=== PATIENT | female | born 1965 | race Caucasian/White ===

== ENCOUNTER 2017-01-06 09:10 | Day surgery (SDC) | payer MEDICARE, BC, MEDICAID ==
[~2017-01-06] VITALS: Ht 157.5 cm; Wt 88.9 kg
[2017-01-06] VITALS (30 sets, daily range): BP systolic 85–149; BP diastolic 55–88; PULSE 60–85; RESP 14–20; TEMP 97–98.8; O2SAT 91–100; Ht 157.5 cm; Wt 88.9 kg
[~2017-01-06 09:10] MED LIST: ALBU8.5H3 INH; BISA-72 PO; BUPIVACAINE 0.25%/EPI 1:200,000 30ml SDV ONE; BUSP15TA3 PO; CEFAZOLIN 1 GRAM INJECTION IV ONE; CETI-269 PO; DIPH25TA23 PO; ESOM40CA PO; FLUT1DIS3 ORAL INH; FURO-35 PO; GENTAMICIN 80 MG/2 ML INJECTION ONE; HYPR10GE4; L.AC1CAP6 PO; LAMO300T PO; LINA290C PO; LR 1,000 ML IV SCH; MAGN400C PO; METF10002 PO; NAPR220C11 PO; POLY17PO18 PO; POTA20TA87 PO; PROP15DR BOTH EYES; SERT100T12 PO; SUCR1TAB PO; TIZA2TAB4 PO; TRAM-277 PO
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
--- OUTSIDE RECORDS SUMMARY | 2017-01-06 09:18 | XMS REPORT | Continuity of Care Document ---
Author Author Via [facility]. Organization [facility]. Address Unknown Phone Unavailable Allergies Active Description Code Type Severity Reaction Onset Reported/Identified Relationship to Patient Clinical Status Yes LIDOCAINE HCL 4629 DRUG INGREDI N/A N/A Yes METRONIDAZOLE 4884 DRUG INGREDI N/A N&V 08/25/2013 Yes METRONIDAZOLE 99038 DRUG INGREDI N/A NTV 08/25/2013 Yes MOLDS T SMUTS 10708 DRUG INGREDI High Anaphylaxis 08/25/2013 Yes MDX - Bupivacaine X492 Drug Allergy Unknown N/A 05/17/2014 Yes MDX - Lidocaine X302 Drug Allergy Unknown N/A 05/17/2014 Yes MDX - Metronidazole X331 Drug Allergy Unknown Vomiting 05/17/2014 Yes Molds MOLD Miscellaneous Allergy Unknown N/A 05/17/2014 Yes Flagyl 7327 Drug moderate Nausea / Vomiting 08/08/2016 Yes Unable to Assess UA UA N/A N/A 08/08/2016 Yes Molds MOLD Miscellaneous Allergy Severe THROAT CLOSES A 10/01/2016 Yes MDX - Bupivacaine X492 Drug Allergy Moderate FACE REDDENS 10/01/2016 Yes MDX - Lidocaine X302 Drug Allergy Moderate FACE REDDENS 10/01/2016 Yes MDX - Metronidazole X331 Drug Allergy Moderate Vomiting 10/01/2016 Medications Problems Date Dx Coded Attending Type Code Diagnosis Diagnosed By 02/09/2013 CADEN MACKENZIE 7295 PAIN IN LIMB 05/17/2014 Ronan Wallace 780.79 05/17/2014 Ronan Wallace 780.97 05/17/2014 Ronan Wallace 784.0 05/17/2014 Ronan Wallace 784.59 05/17/2014 Ronan Wallace 787.02 05/17/2014 Ronan Wallace V15.52 07/11/2015 Alo Villa Z12.31 07/11/2015 Alo Villa Z12.31 07/11/2015 Newcomer, Caden Z12.31 07/20/2015 Newcomer, Caden Z12.31 07/22/2015 Newcomer, Caden Z12.31 08/07/2015 Newcomer, Caden Z12.31 08/10/2015 Newcomer, Caden Z12.31 08/10/2015 Newcomer, Caden Z12.31 08/11/2015 Newcomer, Caden Z12.31 08/14/2015 Newcomer, Caden Z12.31 08/29/2015 KOOPMAN, LLOYD W E66.9 08/29/2015 KOOPMAN, LLOYD W E74.39 08/29/2015 KOOPMAN, LLOYD A E88.81 08/29/2015 KOOPMAN, LLOYD W F41.1 08/29/2015 KOOPMAN, LLOYD W G40.909 08/29/2015 KOOPMAN, LLOYD W G47.30 08/29/2015 KOOPMAN, LLOYD W I10 08/29/2015 KOOPMAN, LLOYD W J45.909 08/29/2015 KOOPMAN, LLOYD W K21.9 08/29/2015 KOOPMAN, LLOYD W K31.84 08/29/2015 KOOPMAN, LLOYD W Z68.39 08/31/2015 KOOPMAN, LLOYD W E66.9 08/31/2015 KOOPMAN, LLOYD W E74.39 08/31/2015 KOOPMAN, LLOYD A E88.81 08/31/2015 KOOPMAN, LLOYD W F41.1 08/31/2015 KOOPMAN, LLOYD W G40.909 08/31/2015 KOOPMAN, LLOYD W G47.30 08/31/2015 KOOPMAN, LLOYD W I10 08/31/2015 KOOPMAN, LLOYD W J45.909 08/31/2015 KOOPMAN, LLOYD W K21.9 08/31/2015 KOOPMAN, LLOYD W K31.84 08/31/2015 KOOPMAN, LLOYD W Z68.39 09/06/2015 Elio Rodarte E66.9 09/06/2015 Elio Rodarte W E74.39 09/06/2015 Elio Rodarte A E88.81 09/06/2015 Elio Rodarte W F41.1 09/06/2015 Elio Rodarte W G40.909 09/06/2015 Elio Rodarte W G47.30 09/06/2015 Elio Rodarte W I10 09/06/2015 Elio Rodarte W J45.909 09/06/2015 Elio Rodarte W K21.9 09/06/2015 Elio Rodarte W K31.84 09/06/2015 Elio Rodarte W Z68.39 09/07/2015 Elio Rodarte W E66.9 09/07/2015 Elio Rodarte W E74.39 09/07/2015 Elio Rodarte A E88.81 09/07/2015 Elio Rodarte F41.1 09/07/2015 Elio Rodarte G40.909 09/07/2015 Elio Rodarte G47.30 09/07/2015 Elio Rodarte W I10 09/07/2015 Elio Rodarte J45.909 09/07/2015 Elio Rodarte K21.9 09/07/2015 Elio Rodarte K31.84 09/07/2015 Elio Rodarte W M19.90 09/07/2015 Elio Rodarte Z68.39 09/08/2015 Elio Rodarte E66.9 09/08/2015 Elio Rodarte E74.39 09/08/2015 Elio Rodarte A E88.81 09/08/2015 Elio Rodarte W F41.1 09/08/2015 Elio Rodarte W G40.909 09/08/2015 RodarteElio peña W G47.30 09/08/2015 RodarteElio peña W I10 09/08/2015 RodarteElio peña W J45.909 09/08/2015 Elio Rodarte W K21.9 09/08/2015 Elio Rodarte W K31.84 09/08/2015 Elio Rodarte W M19.90 09/08/2015 RodarteElio peña W Z68.39 09/09/2015 Elio Rodarte W E66.9 09/09/2015 Elio Rodarte W E74.39 09/09/2015 Elio Rodarte E88.81 09/09/2015 Elio Rodarte F41.1 09/09/2015 Elio Rodarte G40.909 09/09/2015 Elio Rodarte G47.30 09/09/2015 Elio Rodarte W I10 09/09/2015 Elio Rodarte J45.909 09/09/2015 Elio Rodarte K21.9 09/09/2015 Elio Rodarte K31.84 09/09/2015 Elio Rodarte M19.90 09/09/2015 Elio Rodarte Z68.39 09/10/2015 Elio Rodarte E66.9 09/10/2015 Elio Rodarte E74.39 09/10/2015 Elio Rodarte E88.81 09/10/2015 Elio Rodarte F41.1 09/10/2015 Elio Rodarte G40.909 09/10/2015 Elio Rodarte G47.30 09/10/2015 Elio Rodarte W I10 09/10/2015 Elio Rodarte J45.909 09/10/2015 Elio Rodarte K21.9 09/10/2015 Elio Rodarte K31.84 09/10/2015 Elio Rodarte M19.90 09/10/2015 Elio Rodarte Z68.39 09/18/2015 LLOYD MALLOY E66.9 09/18/2015 LLOYD MALLOY E74.39 09/18/2015 LLOYD MALLOY A E88.81 09/18/2015 LLOYD MALLOY F41.1 09/18/2015 LLOYD MALLOY G40.909 09/18/2015 LLOYD MALLOY G47.30 09/18/2015 LLOYD MALLOY I10 09/18/2015 LLOYD MALLOY J45.909 09/18/2015 LLOYD MALLOY K21.9 09/18/2015 LLOYD MALLOY K31.84 09/18/2015 LLOYD MALLOY Z68.39 09/26/2015 Elio Rodarte E66.9 09/26/2015 Rodarte, Elio Cruz E74.39 09/26/2015 Rodarte, Elio Reich E88.81 09/26/2015 Rodarte, Elio Cruz F41.1 09/26/2015 Rodarte, Elio Cruz G40.909 09/26/2015 Rodarte, Elio Cruz G47.30 09/26/2015 Rodarte, Elio Cruz I10 09/26/2015 Rodarte, Eloi Cruz J45.909 09/26/2015 Rodarte, Elio Cruz K21.9 09/26/2015 Rodarte, Elio Cruz K31.84 09/26/2015 Rodarte, Elio Cruz M19.90 09/26/2015 Rodarte, Elio Cruz Z68.39 09/26/2015 Rodarte, Elio Cruz E66.9 09/26/2015 Rodarte, Elio Cruz E74.39 09/26/2015 Rodarte, Elio Reich E88.81 09/26/2015 Rodarte, Elio Cruz F41.1 09/26/2015 Rodarte, Elio Cruz G40.909 09/26/2015 Rodarte, Elio Cruz G47.30 09/26/2015 Rodarte, Elio Cruz I10 09/26/2015 Rodarte, Elio Cruz J45.909 09/26/2015 Rodarte, Elio Cruz K21.9 09/26/2015 Rodarte, Elio Cruz K31.84 09/26/2015 Rodarte, Elio Cruz M19.90 09/26/2015 Rodarte, Elio Cruz Z68.39 09/27/2015 KOOPMANLLOYD W E66.9 09/27/2015 KOOPMAN, LLOYD W E74.39 09/27/2015 KOOPMANLLOYD A E88.81 09/27/2015 KOOPMAN, LLOYD W F41.1 09/27/2015 KOOPMAN, LLOYD W G40.909 09/27/2015 KOOPMAN, LLOYD W G47.30 09/27/2015 KOOPMAN, LLOYD W I10 09/27/2015 KOOPMAN, LLOYD W J45.909 09/27/2015 KOOPMAN, LLOYD W K21.9 09/27/2015 KOOPMANLLOYD K31.84 09/27/2015 KOOPLLOYD POLLACK Z68.39 09/27/2015 Rodarte, Elio Cruz E66.9 09/27/2015 Rodarte, Elio Cruz E74.39 09/27/2015 Rodarte, Elio Reich E88.81 09/27/2015 Rodarte, Elio Cruz F41.1 09/27/2015 Rodarte, Elio Cruz G40.909 09/27/2015 Rodarte, Elio Cruz G47.30 09/27/2015 Rodarte, Elio Cruz I10 09/27/2015 Rodarte, Elio Cruz J45.909 09/27/2015 Rodarte, Elio Cruz K21.9 09/27/2015 Rodarte, Elio Cruz K31.84 09/27/2015 Rodarte, Elio Cruz M19.90 09/27/2015 Rodarte, Elio Cruz Z68.39 09/27/2015 Rodarte, Elio Cruz E66.9 09/27/2015 Rodarte, Elio Cruz E74.39 09/27/2015 Rodarte, Elio Reich E88.81 09/27/2015 Rodarte, Elio Cruz F41.1 09/27/2015 Rodarte, Elio Cruz G40.909 09/27/2015 Rodarte, Elio Cruz G47.30 09/27/2015 Rodarte, Elio Cruz I10 09/27/2015 Rodarte, Elio Cruz J45.909 09/27/2015 Rodarte, Elio Cruz K21.9 09/27/2015 Rodarte, Elio Cruz K31.84 09/27/2015 Rodarte, Elio Cruz M19.90 09/27/2015 Rodarte, Elio Cruz Z68.39 09/29/2015 KOOPMANLLOYD E66.9 09/29/2015 KOOPMAN, LLOYD W E74.39 09/29/2015 KOOPLLOYD POLLACK A E88.81 09/29/2015 KOOPMANLLOYD W F41.1 09/29/2015 KOOPMAN, LLOYD W G40.909 09/29/2015 KOOPMAN, LLOYD W G47.30 09/29/2015 KOOPLLOYD POLLACK W I10 09/29/2015 KOOPMANLLOYD J45.909 09/29/2015 KOOPMAN, LLOYD W K21.9 09/29/2015 KOOPMAN, LLOYD W K31.84 09/29/2015 KOOPMAN, LLOYD W Z68.39 10/02/2015 KOOPMAN, LLOYD W E66.9 10/02/2015 KOOPMAN, LLOYD W E74.39 10/02/2015 KOOPJAKI, LLOYD A E88.81 10/02/2015 KOOPMAN, LLOYD W F41.1 10/02/2015 KOOPMAN, LLOYD W G40.909 10/02/2015 KOOPMAN, LLOYD W G47.30 10/02/2015 KOOPMAN, LLOYD W I10 10/02/2015 KOOPMAN, LLOYD W J45.909 10/02/2015 KOOPMAN, LLOYD W K21.9 10/02/2015 KOOPMAN, LLOYD W K31.84 10/02/2015 KOOPJAKI, LLOYD W Z68.39 10/05/2015 Elio Rodarte E66.9 10/05/2015 Elio Rodarte E74.39 10/05/2015 Elio Rodarte E88.81 10/05/2015 Rodarte, Elio Cruz F41.1 10/05/2015 Rodarte, Elio Cruz G40.909 10/05/2015 Elio Rodarte G47.30 10/05/2015 Elio Rodarte I10 10/05/2015 Elio Rodarte J45.909 10/05/2015 Elio Rodarte K21.9 10/05/2015 Rodarte, Elio Cruz K31.84 10/05/2015 Rodarte, Elio Cruz M19.90 10/05/2015 Rodarte, Elio Cruz Z68.39 10/11/2015 Rodarte, Elio Cruz E66.9 10/11/2015 Rodarte, Elio Cruz E74.39 10/11/2015 Elio Rodarte A E88.81 10/11/2015 Rodarte, Elio Cruz F41.1 10/11/2015 Elio Rodarte G40.909 10/11/2015 Rodarte, Elio Cruz G47.30 10/11/2015 Rodarte, Elio Cruz I10 10/11/2015 Elio Rodarte J45.909 10/11/2015 Rodarte, Elio Cruz K21.9 10/11/2015 Rodarte, Elio Cruz K31.84 10/11/2015 Rodarte, Elio Cruz M19.90 10/11/2015 Rodarte, Elio Cruz Z68.38 10/13/2015 Rodarte, Elio Cruz E66.9 10/13/2015 Rodarte, Elio Cruz E74.39 10/13/2015 Rodarte, Elio Reich E88.81 10/13/2015 Rodarte, Elio Cruz F41.1 10/13/2015 Rodarte, Elio Cruz G40.909 10/13/2015 Rodarte, Elio Cruz G47.30 10/13/2015 Rodarte, Elio Cruz I10 10/13/2015 Rodarte, Elio Cruz J45.909 10/13/2015 Rodarte, Elio Cruz K21.9 10/13/2015 Rodarte, Elio Cruz K31.84 10/13/2015 Rodarte, Elio Cruz M19.90 10/13/2015 Rodarte, Elio Cruz Z68.38 10/30/2015 Rodarte, Elio Reich E11.9 10/30/2015 Rodarte, Elio Cruz G47.33 10/30/2015 Rodarte, Elio Cruz I10 10/30/2015 Rodarte, Elio Cruz J45.998 10/30/2015 Rodarte, Elio Cruz Z68.37 11/01/2015 Rodarte, Elio Reich E11.9 11/01/2015 Rodarte, Elio Cruz G47.33 11/01/2015 Rodarte, Elio Cruz I10 11/01/2015 Rodarte, Elio Cruz J45.998 11/01/2015 Rodarte, Elio Cruz Z68.37 11/01/2015 Rodarte, Elio Cruz E66.9 11/01/2015 Rodarte, Elio Cruz E74.39 11/01/2015 Rodarte, Elio Reich E88.81 11/01/2015 Rodarte, Elio Cruz F41.1 11/01/2015 Rodarte, Elio Cruz G40.909 11/01/2015 Rodarte, Elio Cruz G47.30 11/01/2015 Rodarte, Elio Cruz I10 11/01/2015 Rodarte, Elio Cruz J45.909 11/01/2015 Rodarte, Elio Cruz K21.9 11/01/2015 Rodarte, Elio Cruz K31.84 11/01/2015 Rodarte, Elio Cruz M19.90 11/01/2015 Rodarte, Elio Cruz Z68.38 11/01/2015 Rodarte, Elio Cruz E66.9 11/01/2015 Rodarte, Elio Cruz E74.39 11/01/2015 Rodarte, Elio Reich E88.81 11/01/2015 Rodarte, Elio Cruz F41.1 11/01/2015 Rodarte, Elio Cruz G40.909 11/01/2015 Rodarte, Elio Cruz G47.30 11/01/2015 Rodarte, Elio Cruz I10 11/01/2015 Rodarte, Elio Cruz J45.909 11/01/2015 Rodarte, Elio Cruz K21.9 11/01/2015 Rodarte, Elio Cruz K31.84 11/01/2015 Rodarte, Elio Cruz M19.90 11/01/2015 Rodarte, Elio Cruz Z68.38 11/06/2015 Rodarte, Elio Cruz E66.9 11/06/2015 Rodarte, Elio Cruz E74.39 11/06/2015 Rodarte, Elio Reich E88.81 11/06/2015 Rodarte, Elio Cruz F41.1 11/06/2015 Rodarte, Elio Cruz G40.909 11/06/2015 Rodarte, Elio Cruz G47.30 11/06/2015 Rodarte, Elio Cruz I10 11/06/2015 Rodarte, Elio Cruz J45.909 11/06/2015 Rodarte, Elio Cruz K21.9 11/06/2015 Rodarte, Elio Cruz K31.84 11/06/2015 Rodarte, Elio Cruz M19.90 11/06/2015 Rodarte, Elio Cruz Z68.38 11/08/2015 Rodarte, Elio Cruz E66.9 11/08/2015 Rodarte, Elio Cruz E74.39 11/08/2015 Rodarte, Elio Reich E88.81 11/08/2015 Rodarte, Elio Cruz F41.1 11/08/2015 Rodarte, Elio Cruz G40.909 11/08/2015 Rodarte, Elio Cruz G47.30 11/08/2015 Rodarte, Elio France W I10 11/08/2015 Rodarte, Elio Cruz J45.909 11/08/2015 Rodarte, Elio Cruz K21.9 11/08/2015 Rodarte, Elio Cruz K31.84 11/08/2015 Rodarte, Elio Cruz M19.90 11/08/2015 Rodarte, Elio Cruz Z68.38 11/15/2015 Rodarte, Elio Cruz E66.9 11/15/2015 Rodarte, Elio Cruz E74.39 11/15/2015 Rodarte, Elio Reich E88.81 11/15/2015 Rodarte, Elio Cruz F41.1 11/15/2015 Rodarte, Elio Cruz G40.909 11/15/2015 Rodarte, Elio Cruz G47.30 11/15/2015 Rodarte, Elio Cruz I10 11/15/2015 Rodarte, Elio Cruz J45.909 11/15/2015 Rodarte, Elio Cruz K21.9 11/15/2015 Rodarte, Elio Cruz K31.84 11/15/2015 Rodarte, Elio Cruz M19.90 11/15/2015 Rodarte, Elio Cruz Z68.38 11/15/2015 Rodarte, Elio France A E11.9 11/15/2015 Rodarte, Elio Cruz G47.33 11/15/2015 Rodarte, Elio Cruz I10 11/15/2015 Rodarte, Elio Cruz J45.998 11/15/2015 Rodarte, Elio Cruz Z68.37 11/15/2015 RodarteElio A E11.9 11/15/2015 Rodarte, Elio Cruz G47.33 11/15/2015 Rodarte, Elio Cruz I10 11/15/2015 Rodarte, Elio Cruz J45.998 11/15/2015 Rodarte, Elio Cruz Z68.37 11/15/2015 Alo Villa Z12.31 11/15/2015 LLOYD MALLOY E66.9 11/15/2015 LLOYD MALLOY E74.39 11/15/2015 LLOYD MALLOY E88.81 11/15/2015 BGLLOYD POLLACK W F41.1 11/15/2015 LLOYD MALLOY W G40.909 11/15/2015 ALTAGRACIASALVATORELLOYD POLLACK W G47.30 11/15/2015 LLOYD MALLOY W I10 11/15/2015 LLOYD MALLOY W J45.909 11/15/2015 LLOYD MALLOY W K21.9 11/15/2015 LLOYD MALLOY W K31.84 11/15/2015 ALTAGRACIASALVATOREJAKI LLOYD W Z68.39 11/15/2015 Rodarte, Elio Cruz E66.9 11/15/2015 Rodarte, Elio Cruz E74.39 11/15/2015 Elio Rodarte E88.81 11/15/2015 Cayden, Elio Cruz F41.1 11/15/2015 Rodarte, Elio Cruz G40.909 11/15/2015 Rodarte, Elio Cruz G47.30 11/15/2015 Rodarte, lEio Cruz I10 11/15/2015 Rodarte, Elio Cruz J45.909 11/15/2015 Rodarte, Elio Cruz K21.9 11/15/2015 Rodarte, Elio Cruz K31.84 11/15/2015 Rodarte, Elio Cruz Z68.39 11/15/2015 RodarteElio peña E66.9 11/15/2015 Rodarte, Elio Cruz E74.39 11/15/2015 Elio Rodarte E88.81 11/15/2015 Rodarte, Elio Cruz F41.1 11/15/2015 Rodarte, Elio Cruz G40.909 11/15/2015 Rodarte, Elio Cruz G47.30 11/15/2015 RodarteElio peña I10 11/15/2015 Rodarte, Elio Cruz J45.909 11/15/2015 Rodarte, Elio Cruz K21.9 11/15/2015 RodarteElio K31.84 11/15/2015 Rodarte, Elio Cruz M19.90 11/15/2015 Rodarte, Elio Cruz Z68.39 11/15/2015 Rodarte, Elio Cruz E66.9 11/15/2015 Rodarte, Elio Cruz E74.39 11/15/2015 Elio Rodarte E88.81 11/15/2015 Rodarte, Elio Cruz F41.1 11/15/2015 Rodarte, Elio Cruz G40.909 11/15/2015 Rodarte, Elio Cruz G47.30 11/15/2015 Rodarte, Elio Cruz I10 11/15/2015 Rodarte, Elio Cruz J45.909 11/15/2015 Rodarte, Elio Cruz K21.9 11/15/2015 Rodarte, Elio Cruz K31.84 11/15/2015 Rodarte, Elio Cruz M19.90 11/15/2015 Rodarte, Elio Cruz Z68.39 11/15/2015 Rodarte, Elio Cruz E66.9 11/15/2015 Rodarte, Elio Cruz E74.39 11/15/2015 Rodarte, Elio Reich E88.81 11/15/2015 Rodarte, Elio Cruz F41.1 11/15/2015 Rodarte, Elio Cruz G40.909 11/15/2015 Rodarte, Elio Cruz G47.30 11/15/2015 Rodarte, Elio Cruz I10 11/15/2015 Rodarte, Elio Curz J45.909 11/15/2015 Rodarte, Elio Cruz K21.9 11/15/2015 Rodarte, Elio Cruz K31.84 11/15/2015 Rodarte, Elio Cruz M19.90 11/15/2015 Rodarte, Elio Cruz Z68.38 11/15/2015 Rodarte, Elio Reich E11.9 11/15/2015 Rodarte, Elio Cruz G47.33 11/15/2015 RodarteElio I10 11/15/2015 Rodarte, Elio Cruz J45.998 11/15/2015 Rodarte, Elio Cruz Z68.37 11/22/2015 Alo Villa Z12.31 11/22/2015 LLOYD MALLOY E66.9 11/22/2015 LLOYD MALLOY E74.39 11/22/2015 LLOYD MALLOY E88.81 11/22/2015 LLOYD MALLOY F41.1 11/22/2015 LLOYD MALLOY G40.909 11/22/2015 LLOYD MALLOY G47.30 11/22/2015 ALTAGRACIASALVATORELLOYD POLLACK W I10 11/22/2015 ALTAGRACIAOPLLOYD POLLACK W J45.909 11/22/2015 ALTAGRACIASALVATORELLOYD POLLACK W K21.9 11/22/2015 KOSALVATORELLOYD POLLACK W K31.84 11/22/2015 ALTAGRACIASALVATOREJAKILLOYD W Z68.39 11/22/2015 Rodarte, Elio Cruz E66.9 11/22/2015 Rodarte, Elio Cruz E74.39 11/22/2015 Rodarte, Elio Reich E88.81 11/22/2015 Rodarte, Elio Cruz F41.1 11/22/2015 Rodarte, Elio Cruz G40.909 11/22/2015 Rodarte, Elio Cruz G47.30 11/22/2015 Rodarte, Elio Cruz I10 11/22/2015 Rodarte, Elio Cruz J45.909 11/22/2015 Rodarte, Elio Cruz K21.9 11/22/2015 Rodarte, Elio Cruz K31.84 11/22/2015 Rodarte, Elio Cruz Z68.39 11/22/2015 Rodarte, Elio Cruz E66.9 11/22/2015 Rodarte, Elio Cruz E74.39 11/22/2015 Rodarte, Elio Reich E88.81 11/22/2015 Rodarte, Elio Cruz F41.1 11/22/2015 Rodarte, Elio Cruz G40.909 11/22/2015 Rodarte, Elio Cruz G47.30 11/22/2015 Rodarte, Elio Cruz I10 11/22/2015 Rodarte, Elio Curz J45.909 11/22/2015 Rodarte, Elio Cruz K21.9 11/22/2015 Rodarte, Elio Cruz K31.84 11/22/2015 Rodarte, Elio Cruz M19.90 11/22/2015 Rodarte, Elio Cruz Z68.39 11/22/2015 Rodarte, Elio Cruz E66.9 11/22/2015 Rodarte, Elio Cruz E74.39 11/22/2015 Rodarte, Elio Reich E88.81 11/22/2015 Rodarte, Elio Cruz F41.1 11/22/2015 Rodarte, Elio Cruz G40.909 11/22/2015 Elio Rodarte G47.30 11/22/2015 Elio Rodarte I10 11/22/2015 Elio Rodarte J45.909 11/22/2015 Elio Rodarte K21.9 11/22/2015 Elio Rodarte K31.84 11/22/2015 Elio Rodarte M19.90 11/22/2015 Elio Rodarte Z68.39 11/22/2015 Elio Rodarte E66.9 11/22/2015 Elio Rodarte E74.39 11/22/2015 Elio Rodarte E88.81 11/22/2015 Elio Rodarte F41.1 11/22/2015 Elio Rodarte G40.909 11/22/2015 Elio Rodarte G47.30 11/22/2015 Elio Rodarte I10 11/22/2015 Elio Rodarte J45.909 11/22/2015 Elio Rodarte K21.9 11/22/2015 Elio Rodarte K31.84 11/22/2015 Elio Rodarte M19.90 11/22/2015 Elio Rodarte Z68.38 11/22/2015 Elio Rodarte E11.9 11/22/2015 Elio Rodarte G47.33 11/22/2015 Elio Rodarte I10 11/22/2015 Elio Rodarte J45.998 11/22/2015 Elio Rodarte Z68.37 11/22/2015 Amara, Aries W G43.909 MIGRAINE, UNSP, NOT INTRACTABLE, WITHOUT 11/22/2015 Amara, Aries W I10 ESSENTIAL (PRIMARY) HYPERTENSION 11/22/2015 Amara, Aries A R51 HEADACHE 11/22/2015 Amara, Aries W Z87.891 PERSONAL HISTORY OF NICOTINE DEPENDENCE 11/22/2015 Elio Rodarte E11.9 11/22/2015 Elio Rodarte G47.33 11/22/2015 Elio Rodarte I10 11/22/2015 Elio Rodarte J45.998 11/22/2015 Elio Rodarte Z68.37 11/22/2015 Elio Rodarte E11.9 11/22/2015 Rodarte, Elio Cruz G47.33 11/22/2015 Rodarte, Elio Cruz I10 11/22/2015 Rodarte, Elio Cruz J45.998 11/22/2015 Rodarte, Elio Cruz Z68.37 11/27/2015 Rodarte, Elio Cruz E66.9 11/27/2015 Rodarte, Elio Cruz E74.39 11/27/2015 Rodarte, Elio Reich E88.81 11/27/2015 Rodarte, Elio Cruz F41.1 11/27/2015 Rodarte, Elio Cruz G40.909 11/27/2015 Rodarte, Elio Cruz G47.30 11/27/2015 Rodarte, Elio Cruz I10 11/27/2015 Rodarte, Elio Cruz J45.909 11/27/2015 Rodarte, Elio Cruz K21.9 11/27/2015 RodarteElio peña K31.84 11/27/2015 Rodarte, Elio Cruz M19.90 11/27/2015 RodarteElio peña Z68.38 11/27/2015 RodarteElio E11.9 11/27/2015 Rodarte, Elio Cruz G47.33 11/27/2015 Elio Rodarte I10 11/27/2015 Rodarte, Elio Cruz J45.998 11/27/2015 Rodarte, Elio Cruz Z68.37 11/29/2015 Elio Rodarte E11.9 11/29/2015 RodarteElio peña G47.33 11/29/2015 Rodarte, Elio Cruz I10 11/29/2015 Rodarte, Elio Cruz J45.998 11/29/2015 RodarteElio Z68.37 11/29/2015 RodarteElio E11.9 11/29/2015 Rodarte, Elio Cruz G47.33 11/29/2015 Rodarte, Elio Cruz I10 11/29/2015 Rodarte, Elio Cruz J45.998 11/29/2015 RodarteElio peña Z68.37 12/05/2015 Rodarte, Elio Reich E11.9 12/05/2015 Rodarte, Elio Cruz G47.33 12/05/2015 Rodarte, Elio France W I10 12/05/2015 Rodarte, Elio Cruz J45.998 12/05/2015 Rodarte, Elio Cruz Z68.37 12/05/2015 Rodarte, Elio France A E11.9 12/05/2015 Rodarte, Elio Cruz G47.33 12/05/2015 Rodarte, Elio France W I10 12/05/2015 Rodarte, Elio Cruz J45.998 12/05/2015 Rodarte, Elio Cruz Z68.37 12/07/2015 Rodarte, Elio France A E11.9 12/07/2015 Rodarte, Elio Cruz G47.33 12/07/2015 Rodarte, Elio France W I10 12/07/2015 Rodarte, Elio Cruz J45.998 12/07/2015 Rodarte, Elio Cruz Z68.37 12/08/2015 Rodarte, Elio France A E11.9 12/08/2015 Rodarte, Elio Cruz G47.33 12/08/2015 Rodarte, Elio France W I10 12/08/2015 Rodarte, Elio Cruz J45.998 12/08/2015 RodarteElio Z68.37 12/27/2015 Elio Rodarte A E11.9 12/27/2015 Rodarte, Elio Cruz G47.33 12/27/2015 RodarteElio peña W I10 12/27/2015 Elio Rodarte J45.998 12/27/2015 RodarteElio peña Z68.37 12/27/2015 RodarteElio peña A E11.9 12/27/2015 Rodarte, Elio Cruz G47.33 12/27/2015 RodarteElio peña W I10 12/27/2015 Rodarte, Elio France W J45.998 12/27/2015 RodarteElio peña Z68.37 12/29/2015 Elio Rodarte A E11.9 12/29/2015 Rodarte, Elio Cruz G47.33 12/29/2015 Elio Rodarte W I10 12/29/2015 Rodarte, Elio Cruz J45.998 12/29/2015 RodarteElio Z68.37 01/15/2016 Elio Rodarte A E11.9 TYPE 2 DIABETES MELLITUS WITHOUT COMPLIC 01/15/2016 Elio Rodarte G47.33 OBSTRUCTIVE SLEEP APNEA (ADULT) (PEDIATR 01/15/2016 Elio Rodarte I10 ESSENTIAL (PRIMARY) HYPERTENSION 01/15/2016 Elio Rodarte J45.998 OTHER ASTHMA 01/15/2016 Elio Rodarte Z68.37 BODY MASS INDEX (BMI) 37.0-37.9, ADULT 01/17/2016 Elio Rodarte E11.9 TYPE 2 DIABETES MELLITUS WITHOUT COMPLIC 01/17/2016 Elio Rodarte G47.33 OBSTRUCTIVE SLEEP APNEA (ADULT) (PEDIATR 01/17/2016 Elio Rodarte I10 ESSENTIAL (PRIMARY) HYPERTENSION 01/17/2016 Elio Rodarte J45.998 OTHER ASTHMA 01/17/2016 Elio Rodarte Z68.37 BODY MASS INDEX (BMI) 37.0-37.9, ADULT 01/23/2016 Elio Rodarte E11.9 TYPE 2 DIABETES MELLITUS WITHOUT COMPLIC 01/23/2016 Elio Rodarte G47.33 OBSTRUCTIVE SLEEP APNEA (ADULT) (PEDIATR 01/23/2016 Elio Rodarte I10 ESSENTIAL (PRIMARY) HYPERTENSION 01/23/2016 Elio Rodarte J45.998 OTHER ASTHMA 01/23/2016 Elio Rodarte Z68.37 BODY MASS INDEX (BMI) 37.0-37.9, ADULT 01/29/2016 Elio Rodarte E11.9 TYPE 2 DIABETES MELLITUS WITHOUT COMPLIC 01/29/2016 Elio Rodarte G47.33 OBSTRUCTIVE SLEEP APNEA (ADULT) (PEDIATR 01/29/2016 Elio Rodarte I10 ESSENTIAL (PRIMARY) HYPERTENSION 01/29/2016 Elio Rodarte J45.998 OTHER ASTHMA 01/29/2016 Elio Rodarte Z68.37 BODY MASS INDEX (BMI) 37.0-37.9, ADULT 01/31/2016 Elio Rodarte E11.9 TYPE 2 DIABETES MELLITUS WITHOUT COMPLIC 01/31/2016 Elio Rodarte G47.33 OBSTRUCTIVE SLEEP APNEA (ADULT) (PEDIATR 01/31/2016 Elio Rodarte I10 ESSENTIAL (PRIMARY) HYPERTENSION 01/31/2016 Elio Rodarte J45.998 OTHER ASTHMA 01/31/2016 Elio Rodarte Z68.37 BODY MASS INDEX (BMI) 37.0-37.9, ADULT 01/31/2016 Elio Rodarte E11.9 TYPE 2 DIABETES MELLITUS WITHOUT COMPLIC 01/31/2016 Elio Rodarte G47.33 OBSTRUCTIVE SLEEP APNEA (ADULT) (PEDIATR 01/31/2016 Elio Rodarte I10 ESSENTIAL (PRIMARY) HYPERTENSION 01/31/2016 Elio Rodarte J45.998 OTHER ASTHMA 01/31/2016 Elio Rodarte Z68.37 BODY MASS INDEX (BMI) 37.0-37.9, ADULT 01/31/2016 Elio Rodarte E66.9 OBESITY, UNSPECIFIED 01/31/2016 Elio Rodarte 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 01/31/2016 Elio Rodarte E88.81 METABOLIC SYNDROME 01/31/2016 Elio Rodarte F41.1 GENERALIZED ANXIETY DISORDER 01/31/2016 Elio Rodarte G40.909 EPILEPSY, UNSP, NOT INTRACTABLE, WITHOUT 01/31/2016 lEio Rodarte G47.30 SLEEP APNEA, UNSPECIFIED 01/31/2016 Elio Rodarte I10 ESSENTIAL (PRIMARY) HYPERTENSION 01/31/2016 Elio Rodarte J45.909 UNSPECIFIED ASTHMA, UNCOMPLICATED 01/31/2016 Elio Rodarte K21.9 GASTRO-ESOPHAGEAL REFLUX DISEASE WITHOUT 01/31/2016 Elio Rodarte K31.84 GASTROPARESIS 01/31/2016 Elio Rodarte M19.90 UNSPECIFIED OSTEOARTHRITIS, UNSPECIFIED 01/31/2016 Elio Rodarte Z68.38 BODY MASS INDEX (BMI) 38.0-38.9, ADULT 01/31/2016 Elio Rodarte E11.9 TYPE 2 DIABETES MELLITUS WITHOUT COMPLIC 01/31/2016 Elio Rodarte G47.33 OBSTRUCTIVE SLEEP APNEA (ADULT) (PEDIATR 01/31/2016 Elio Rodarte I10 ESSENTIAL (PRIMARY) HYPERTENSION 01/31/2016 Elio Rodarte J45.998 OTHER ASTHMA 01/31/2016 Elio Rodarte Z68.37 BODY MASS INDEX (BMI) 37.0-37.9, ADULT 02/07/2016 Elio Rodarte E66.9 OBESITY, UNSPECIFIED 02/07/2016 Elio Rodarte 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 02/07/2016 Elio Rodarte E88.81 METABOLIC SYNDROME 02/07/2016 Elio Rodarte F41.1 GENERALIZED ANXIETY DISORDER 02/07/2016 Elio Rodarte G40.909 EPILEPSY, UNSP, NOT INTRACTABLE, WITHOUT 02/07/2016 Elio Rodarte G47.30 SLEEP APNEA, UNSPECIFIED 02/07/2016 Elio Rodarte I10 ESSENTIAL (PRIMARY) HYPERTENSION 02/07/2016 Elio Rodarte J45.909 UNSPECIFIED ASTHMA, UNCOMPLICATED 02/07/2016 Elio Rodarte K21.9 GASTRO-ESOPHAGEAL REFLUX DISEASE WITHOUT 02/07/2016 Elio Rodarte K31.84 GASTROPARESIS 02/07/2016 Elio Rodarte M19.90 UNSPECIFIED OSTEOARTHRITIS, UNSPECIFIED 02/07/2016 Elio Rodarte Z68.38 BODY MASS INDEX (BMI) 38.0-38.9, ADULT 02/07/2016 Elio Rodarte E11.9 TYPE 2 DIABETES MELLITUS WITHOUT COMPLIC 02/07/2016 Elio Rodarte G47.33 OBSTRUCTIVE SLEEP APNEA (ADULT) (PEDIATR 02/07/2016 Elio Rodarte I10 ESSENTIAL (PRIMARY) HYPERTENSION 02/07/2016 Elio Rodarte J45.998 OTHER ASTHMA 02/07/2016 Elio Rodarte Z68.37 BODY MASS INDEX (BMI) 37.0-37.9, ADULT 02/07/2016 Elio Rodarte E11.9 TYPE 2 DIABETES MELLITUS WITHOUT COMPLIC 02/07/2016 Elio Rodarte G47.33 OBSTRUCTIVE SLEEP APNEA (ADULT) (PEDIATR 02/07/2016 Elio Rodarte I10 ESSENTIAL (PRIMARY) HYPERTENSION 02/07/2016 lEio Rodarte J45.998 OTHER ASTHMA 02/07/2016 Elio Rodarte Z68.37 BODY MASS INDEX (BMI) 37.0-37.9, ADULT 02/07/2016 Elio Rodarte E11.9 TYPE 2 DIABETES MELLITUS WITHOUT COMPLIC 02/07/2016 Elio Rodarte G47.33 OBSTRUCTIVE SLEEP APNEA (ADULT) (PEDIATR 02/07/2016 Elio Rodarte I10 ESSENTIAL (PRIMARY) HYPERTENSION 02/07/2016 Elio Rodarte J45.998 OTHER ASTHMA 02/07/2016 Elio Rodarte Z68.37 BODY MASS INDEX (BMI) 37.0-37.9, ADULT 02/08/2016 Elio Rodarte E11.9 TYPE 2 DIABETES MELLITUS WITHOUT COMPLIC 02/08/2016 Elio Rodarte G47.33 OBSTRUCTIVE SLEEP APNEA (ADULT) (PEDIATR 02/08/2016 Elio Rodarte I10 ESSENTIAL (PRIMARY) HYPERTENSION 02/08/2016 Elio Rodarte J45.998 OTHER ASTHMA 02/08/2016 Elio Rodarte Z68.36 BODY MASS INDEX (BMI) 36.0-36.9, ADULT 02/10/2016 Elio Rodarte E11.9 TYPE 2 DIABETES MELLITUS WITHOUT COMPLIC 02/10/2016 Elio Rodarte G47.33 OBSTRUCTIVE SLEEP APNEA (ADULT) (PEDIATR 02/10/2016 Elio Rodarte I10 ESSENTIAL (PRIMARY) HYPERTENSION 02/10/2016 Elio Rodarte J45.998 OTHER ASTHMA 02/10/2016 Elio Rodarte Z68.36 BODY MASS INDEX (BMI) 36.0-36.9, ADULT 02/13/2016 Elio Rodarte E11.9 TYPE 2 DIABETES MELLITUS WITHOUT COMPLIC 02/13/2016 Elio Rodarte G47.33 OBSTRUCTIVE SLEEP APNEA (ADULT) (PEDIATR 02/13/2016 Elio Rodarte I10 ESSENTIAL (PRIMARY) HYPERTENSION 02/13/2016 Elio Rodarte J45.998 OTHER ASTHMA 02/13/2016 Elio Rodarte Z68.37 BODY MASS INDEX (BMI) 37.0-37.9, ADULT 02/21/2016 Elio Rodarte E11.9 TYPE 2 DIABETES MELLITUS WITHOUT COMPLIC 02/21/2016 Elio Rodarte G47.33 OBSTRUCTIVE SLEEP APNEA (ADULT) (PEDIATR 02/21/2016 Elio Rodarte I10 ESSENTIAL (PRIMARY) HYPERTENSION 02/21/2016 Elio Rodarte J45.998 OTHER ASTHMA 02/21/2016 Elio Rodarte Z68.37 BODY MASS INDEX (BMI) 37.0-37.9, ADULT 02/26/2016 Elio Rodarte E11.9 TYPE 2 DIABETES MELLITUS WITHOUT COMPLIC 02/26/2016 Elio Rodarte G47.33 OBSTRUCTIVE SLEEP APNEA (ADULT) (PEDIATR 02/26/2016 Elio Rodarte I10 ESSENTIAL (PRIMARY) HYPERTENSION 02/26/2016 Elio Rodarte J45.998 OTHER ASTHMA 02/26/2016 Elio Rodarte Z68.36 BODY MASS INDEX (BMI) 36.0-36.9, ADULT 02/26/2016 Elio Rodarte E11.9 TYPE 2 DIABETES MELLITUS WITHOUT COMPLIC 02/26/2016 Elio Rodarte G47.33 OBSTRUCTIVE SLEEP APNEA (ADULT) (PEDIATR 02/26/2016 Elio Rodarte I10 ESSENTIAL (PRIMARY) HYPERTENSION 02/26/2016 Elio Rodarte J45.998 OTHER ASTHMA 02/26/2016 Elio Rodarte Z68.36 BODY MASS INDEX (BMI) 36.0-36.9, ADULT 03/02/2016 Elio Rodarte E11.9 TYPE 2 DIABETES MELLITUS WITHOUT COMPLIC 03/02/2016 Elio Rodarte G47.33 OBSTRUCTIVE SLEEP APNEA (ADULT) (PEDIATR 03/02/2016 Elio Rodarte I10 ESSENTIAL (PRIMARY) HYPERTENSION 03/02/2016 Elio Rodarte J45.998 OTHER ASTHMA 03/02/2016 Elio Rodarte Z68.36 BODY MASS INDEX (BMI) 36.0-36.9, ADULT 03/07/2016 Elio Rodarte E11.9 TYPE 2 DIABETES MELLITUS WITHOUT COMPLIC 03/07/2016 Elio Rodarte G47.33 OBSTRUCTIVE SLEEP APNEA (ADULT) (PEDIATR 03/07/2016 Elio Rodarte I10 ESSENTIAL (PRIMARY) HYPERTENSION 03/07/2016 Elio Rodarte J45.998 OTHER ASTHMA 03/07/2016 Elio Rodarte Z68.36 BODY MASS INDEX (BMI) 36.0-36.9, ADULT 03/09/2016 Elio Rodarte E11.9 TYPE 2 DIABETES MELLITUS WITHOUT COMPLIC 03/09/2016 Elio Rodarte G47.33 OBSTRUCTIVE SLEEP APNEA (ADULT) (PEDIATR 03/09/2016 Elio Rodarte I10 ESSENTIAL (PRIMARY) HYPERTENSION 03/09/2016 Elio Rodarte J45.998 OTHER ASTHMA 03/09/2016 Elio Rodarte Z68.36 BODY MASS INDEX (BMI) 36.0-36.9, ADULT 04/09/2016 Elio Rodarte E11.9 TYPE 2 DIABETES MELLITUS WITHOUT COMPLIC 04/09/2016 Elio Rodarte G47.33 OBSTRUCTIVE SLEEP APNEA (ADULT) (PEDIATR 04/09/2016 Elio Rodarte I10 ESSENTIAL (PRIMARY) HYPERTENSION 04/09/2016 Elio Rodarte J45.998 OTHER ASTHMA 04/09/2016 Elio Rodarte Z68.36 BODY MASS INDEX (BMI) 36.0-36.9, ADULT 04/11/2016 Elio Rodarte E11.9 TYPE 2 DIABETES MELLITUS WITHOUT COMPLIC 04/11/2016 Elio Rodarte G47.33 OBSTRUCTIVE SLEEP APNEA (ADULT) (PEDIATR 04/11/2016 Elio Rodarte I10 ESSENTIAL (PRIMARY) HYPERTENSION 04/11/2016 Elio Rodarte J45.998 OTHER ASTHMA 04/11/2016 Elio Rodarte Z68.36 BODY MASS INDEX (BMI) 36.0-36.9, ADULT 04/23/2016 Alo Villa Z12.31 ENCNTR SCREEN MAMMOGRAM FOR MALIGNANT NE 04/23/2016 LLOYD MALLOY E66.9 OBESITY, UNSPECIFIED 04/23/2016 LLOYD MALLOY 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 04/23/2016 LLOYD MALLOY E88.81 METABOLIC SYNDROME 04/23/2016 LLOYD MALLOY F41.1 GENERALIZED ANXIETY DISORDER 04/23/2016 LLOYD MALLOY G40.909 EPILEPSY, UNSP, NOT INTRACTABLE, WITHOUT 04/23/2016 LLOYD MALLOY G47.30 SLEEP APNEA, UNSPECIFIED 04/23/2016 LLOYD MALLOY I10 ESSENTIAL (PRIMARY) HYPERTENSION 04/23/2016 LLOYD MALLOY J45.909 UNSPECIFIED ASTHMA, UNCOMPLICATED 04/23/2016 LLOYD MALLOY K21.9 GASTRO-ESOPHAGEAL REFLUX DISEASE WITHOUT 04/23/2016 LLOYD MALLOY K31.84 GASTROPARESIS 04/23/2016 LLOYD MALLOY Z68.39 BODY MASS INDEX (BMI) 39.0-39.9, ADULT 04/23/2016 Elio Rodarte E66.9 OBESITY, UNSPECIFIED 04/23/2016 Elio Rodarte 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 04/23/2016 Elio Rodarte E88.81 METABOLIC SYNDROME 04/23/2016 Elio Rodarte F41.1 GENERALIZED ANXIETY DISORDER 04/23/2016 Elio Rodarte G40.909 EPILEPSY, UNSP, NOT INTRACTABLE, WITHOUT 04/23/2016 Elio Rodarte G47.30 SLEEP APNEA, UNSPECIFIED 04/23/2016 Elio Rodarte I10 ESSENTIAL (PRIMARY) HYPERTENSION 04/23/2016 Elio Rodarte J45.909 UNSPECIFIED ASTHMA, UNCOMPLICATED 04/23/2016 Elio Rodarte K21.9 GASTRO-ESOPHAGEAL REFLUX DISEASE WITHOUT 04/23/2016 Elio Rodarte K31.84 GASTROPARESIS 04/23/2016 Elio Rodarte Z68.39 BODY MASS INDEX (BMI) 39.0-39.9, ADULT 04/23/2016 Elio Rodarte E66.9 OBESITY, UNSPECIFIED 04/23/2016 Elio Rodarte 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 04/23/2016 Elio Rodarte E88.81 METABOLIC SYNDROME 04/23/2016 Elio Rodarte F41.1 GENERALIZED ANXIETY DISORDER 04/23/2016 Elio Rodarte G40.909 EPILEPSY, UNSP, NOT INTRACTABLE, WITHOUT 04/23/2016 Elio Rodarte G47.30 SLEEP APNEA, UNSPECIFIED 04/23/2016 Elio Rodarte I10 ESSENTIAL (PRIMARY) HYPERTENSION 04/23/2016 Elio Rodarte J45.909 UNSPECIFIED ASTHMA, UNCOMPLICATED 04/23/2016 Elio Rodarte K21.9 GASTRO-ESOPHAGEAL REFLUX DISEASE WITHOUT 04/23/2016 Elio Rodarte K31.84 GASTROPARESIS 04/23/2016 Elio Rodarte M19.90 UNSPECIFIED OSTEOARTHRITIS, UNSPECIFIED 04/23/2016 Elio Rodarte Z68.39 BODY MASS INDEX (BMI) 39.0-39.9, ADULT 04/23/2016 Elio Rodarte E66.9 OBESITY, UNSPECIFIED 04/23/2016 Elio Rodarte 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 04/23/2016 Elio Rodarte E88.81 METABOLIC SYNDROME 04/23/2016 Elio Rodarte F41.1 GENERALIZED ANXIETY DISORDER 04/23/2016 Elio Rodarte G40.909 EPILEPSY, UNSP, NOT INTRACTABLE, WITHOUT 04/23/2016 Elio Rodarte G47.30 SLEEP APNEA, UNSPECIFIED 04/23/2016 Elio Rodarte I10 ESSENTIAL (PRIMARY) HYPERTENSION 04/23/2016 Elio Rodarte J45.909 UNSPECIFIED ASTHMA, UNCOMPLICATED 04/23/2016 Elio Rodarte K21.9 GASTRO-ESOPHAGEAL REFLUX DISEASE WITHOUT 04/23/2016 Elio Rodarte K31.84 GASTROPARESIS 04/23/2016 Elio Rodarte M19.90 UNSPECIFIED OSTEOARTHRITIS, UNSPECIFIED 04/23/2016 Elio Rodarte Z68.39 BODY MASS INDEX (BMI) 39.0-39.9, ADULT 04/23/2016 Elio Rodarte E66.9 OBESITY, UNSPECIFIED 04/23/2016 Elio Rodarte 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 04/23/2016 Elio Rodarte E88.81 METABOLIC SYNDROME 04/23/2016 Elio Rodarte F41.1 GENERALIZED ANXIETY DISORDER 04/23/2016 Elio Rodarte G40.909 EPILEPSY, UNSP, NOT INTRACTABLE, WITHOUT 04/23/2016 Elio Rodarte G47.30 SLEEP APNEA, UNSPECIFIED 04/23/2016 Elio Rodarte I10 ESSENTIAL (PRIMARY) HYPERTENSION 04/23/2016 Elio Rodarte J45.909 UNSPECIFIED ASTHMA, UNCOMPLICATED 04/23/2016 Elio Rodarte K21.9 GASTRO-ESOPHAGEAL REFLUX DISEASE WITHOUT 04/23/2016 Elio Rodarte K31.84 GASTROPARESIS 04/23/2016 Elio Rodarte M19.90 UNSPECIFIED OSTEOARTHRITIS, UNSPECIFIED 04/23/2016 Elio Rodarte Z68.38 BODY MASS INDEX (BMI) 38.0-38.9, ADULT 04/23/2016 Elio Rodarte E11.9 TYPE 2 DIABETES MELLITUS WITHOUT COMPLIC 04/23/2016 Elio Rodarte G47.33 OBSTRUCTIVE SLEEP APNEA (ADULT) (PEDIATR 04/23/2016 Elio Rodarte I10 ESSENTIAL (PRIMARY) HYPERTENSION 04/23/2016 Elio Rodarte J45.998 OTHER ASTHMA 04/23/2016 Elio Rodarte Z68.37 BODY MASS INDEX (BMI) 37.0-37.9, ADULT 04/23/2016 Elio Rodarte E11.9 TYPE 2 DIABETES MELLITUS WITHOUT COMPLIC 04/23/2016 Elio Rodarte G47.33 OBSTRUCTIVE SLEEP APNEA (ADULT) (PEDIATR 04/23/2016 Elio Rodarte I10 ESSENTIAL (PRIMARY) HYPERTENSION 04/23/2016 lEio Rodarte J45.998 OTHER ASTHMA 04/23/2016 Elio Rodarte Z68.37 BODY MASS INDEX (BMI) 37.0-37.9, ADULT 04/23/2016 Elio Rodarte E11.9 TYPE 2 DIABETES MELLITUS WITHOUT COMPLIC 04/23/2016 Elio Rodarte G47.33 OBSTRUCTIVE SLEEP APNEA (ADULT) (PEDIATR 04/23/2016 Elio Rodarte I10 ESSENTIAL (PRIMARY) HYPERTENSION 04/23/2016 Elio Rodarte J45.998 OTHER ASTHMA 04/23/2016 Elio Rodarte Z68.37 BODY MASS INDEX (BMI) 37.0-37.9, ADULT 04/23/2016 Elio Rodarte E11.9 TYPE 2 DIABETES MELLITUS WITHOUT COMPLIC 04/23/2016 Elio Rodarte G47.33 OBSTRUCTIVE SLEEP APNEA (ADULT) (PEDIATR 04/23/2016 Elio Rodarte I10 ESSENTIAL (PRIMARY) HYPERTENSION 04/23/2016 Elio Rodarte J45.998 OTHER ASTHMA 04/23/2016 Elio Rodarte Z68.36 BODY MASS INDEX (BMI) 36.0-36.9, ADULT 04/23/2016 Elio Rodarte E11.9 TYPE 2 DIABETES MELLITUS WITHOUT COMPLIC 04/23/2016 Elio Rodarte G47.33 OBSTRUCTIVE SLEEP APNEA (ADULT) (PEDIATR 04/23/2016 Elio Rodarte I10 ESSENTIAL (PRIMARY) HYPERTENSION 04/23/2016 Elio Rodarte J45.998 OTHER ASTHMA 04/23/2016 Elio Rodarte Z68.36 BODY MASS INDEX (BMI) 36.0-36.9, ADULT 04/25/2016 Elio Rodarte E11.9 TYPE 2 DIABETES MELLITUS WITHOUT COMPLIC 04/25/2016 Elio Rodarte G47.33 OBSTRUCTIVE SLEEP APNEA (ADULT) (PEDIATR 04/25/2016 Elio Rodarte I10 ESSENTIAL (PRIMARY) HYPERTENSION 04/25/2016 Elio Rodarte J45.998 OTHER ASTHMA 04/25/2016 Elio Rodarte Z68.36 BODY MASS INDEX (BMI) 36.0-36.9, ADULT 04/26/2016 Alo Villa Z12.31 ENCNTR SCREEN MAMMOGRAM FOR MALIGNANT NE 04/26/2016 LLOYD MALLOY E66.9 OBESITY, UNSPECIFIED 04/26/2016 LLOYD MALLOY 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 04/26/2016 LLOYD MALLOY E88.81 METABOLIC SYNDROME 04/26/2016 LLOYD MALLOY F41.1 GENERALIZED ANXIETY DISORDER 04/26/2016 LLOYD MALLOY G40.909 EPILEPSY, UNSP, NOT INTRACTABLE, WITHOUT 04/26/2016 LLOYD MALLOY G47.30 SLEEP APNEA, UNSPECIFIED 04/26/2016 LLOYD MALLOY I10 ESSENTIAL (PRIMARY) HYPERTENSION 04/26/2016 LLOYD MALLOY J45.909 UNSPECIFIED ASTHMA, UNCOMPLICATED 04/26/2016 LLOYD MALLOY K21.9 GASTRO-ESOPHAGEAL REFLUX DISEASE WITHOUT 04/26/2016 LLOYD MALLOY K31.84 GASTROPARESIS 04/26/2016 LLOYD MALLOY Z68.39 BODY MASS INDEX (BMI) 39.0-39.9, ADULT 04/26/2016 Elio Rodarte E66.9 OBESITY, UNSPECIFIED 04/26/2016 Elio Rodarte 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 04/26/2016 Elio Rodarte E88.81 METABOLIC SYNDROME 04/26/2016 Elio Rodarte F41.1 GENERALIZED ANXIETY DISORDER 04/26/2016 Elio Rodarte G40.909 EPILEPSY, UNSP, NOT INTRACTABLE, WITHOUT 04/26/2016 Elio Rodarte G47.30 SLEEP APNEA, UNSPECIFIED 04/26/2016 Elio Rodarte I10 ESSENTIAL (PRIMARY) HYPERTENSION 04/26/2016 Elio Rodarte J45.909 UNSPECIFIED ASTHMA, UNCOMPLICATED 04/26/2016 Elio Rodarte K21.9 GASTRO-ESOPHAGEAL REFLUX DISEASE WITHOUT 04/26/2016 Elio Rodarte K31.84 GASTROPARESIS 04/26/2016 Elio Rodarte Z68.39 BODY MASS INDEX (BMI) 39.0-39.9, ADULT 04/26/2016 Elio Rodarte E66.9 OBESITY, UNSPECIFIED 04/26/2016 Elio Rodarte 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 04/26/2016 Elio Rodarte E88.81 METABOLIC SYNDROME 04/26/2016 Elio Rodarte F41.1 GENERALIZED ANXIETY DISORDER 04/26/2016 Elio Rodarte G40.909 EPILEPSY, UNSP, NOT INTRACTABLE, WITHOUT 04/26/2016 Elio Rodarte G47.30 SLEEP APNEA, UNSPECIFIED 04/26/2016 Elio Rodarte I10 ESSENTIAL (PRIMARY) HYPERTENSION 04/26/2016 Elio Rodarte J45.909 UNSPECIFIED ASTHMA, UNCOMPLICATED 04/26/2016 Elio Rodarte K21.9 GASTRO-ESOPHAGEAL REFLUX DISEASE WITHOUT 04/26/2016 Elio Rodarte K31.84 GASTROPARESIS 04/26/2016 Elio Rodarte M19.90 UNSPECIFIED OSTEOARTHRITIS, UNSPECIFIED 04/26/2016 Elio Rodarte Z68.39 BODY MASS INDEX (BMI) 39.0-39.9, ADULT 04/26/2016 Elio Rodarte E66.9 OBESITY, UNSPECIFIED 04/26/2016 Elio Rodarte 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 04/26/2016 Elio Rodarte E88.81 METABOLIC SYNDROME 04/26/2016 Elio Rodarte F41.1 GENERALIZED ANXIETY DISORDER 04/26/2016 Elio Rodarte G40.909 EPILEPSY, UNSP, NOT INTRACTABLE, WITHOUT 04/26/2016 Elio Rodarte G47.30 SLEEP APNEA, UNSPECIFIED 04/26/2016 Elio Rodarte I10 ESSENTIAL (PRIMARY) HYPERTENSION 04/26/2016 Elio Rodarte J45.909 UNSPECIFIED ASTHMA, UNCOMPLICATED 04/26/2016 Elio Rodarte K21.9 GASTRO-ESOPHAGEAL REFLUX DISEASE WITHOUT 04/26/2016 Elio Rodarte K31.84 GASTROPARESIS 04/26/2016 Elio Rodarte M19.90 UNSPECIFIED OSTEOARTHRITIS, UNSPECIFIED 04/26/2016 Elio Rodarte Z68.39 BODY MASS INDEX (BMI) 39.0-39.9, ADULT 04/26/2016 Elio Rodarte E66.9 OBESITY, UNSPECIFIED 04/26/2016 Elio Rodarte 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 04/26/2016 Elio Rodarte E88.81 METABOLIC SYNDROME 04/26/2016 Elio Rodarte F41.1 GENERALIZED ANXIETY DISORDER 04/26/2016 Elio Rodarte G40.909 EPILEPSY, UNSP, NOT INTRACTABLE, WITHOUT 04/26/2016 Elio Rodarte G47.30 SLEEP APNEA, UNSPECIFIED 04/26/2016 Elio Rodarte I10 ESSENTIAL (PRIMARY) HYPERTENSION 04/26/2016 Elio Rodarte J45.909 UNSPECIFIED ASTHMA, UNCOMPLICATED 04/26/2016 Elio Rodarte K21.9 GASTRO-ESOPHAGEAL REFLUX DISEASE WITHOUT 04/26/2016 Elio Rodarte K31.84 GASTROPARESIS 04/26/2016 Elio Rodarte M19.90 UNSPECIFIED OSTEOARTHRITIS, UNSPECIFIED 04/26/2016 Elio Rodarte Z68.38 BODY MASS INDEX (BMI) 38.0-38.9, ADULT 04/26/2016 lEio Rodarte E11.9 TYPE 2 DIABETES MELLITUS WITHOUT COMPLIC 04/26/2016 Elio Rodarte G47.33 OBSTRUCTIVE SLEEP APNEA (ADULT) (PEDIATR 04/26/2016 Elio Rodarte I10 ESSENTIAL (PRIMARY) HYPERTENSION 04/26/2016 Elio Rodarte J45.998 OTHER ASTHMA 04/26/2016 Elio Rodarte Z68.37 BODY MASS INDEX (BMI) 37.0-37.9, ADULT 04/26/2016 Elio Rodarte E11.9 TYPE 2 DIABETES MELLITUS WITHOUT COMPLIC 04/26/2016 Elio Rodarte G47.33 OBSTRUCTIVE SLEEP APNEA (ADULT) (PEDIATR 04/26/2016 Elio Rodarte I10 ESSENTIAL (PRIMARY) HYPERTENSION 04/26/2016 Elio Rodarte J45.998 OTHER ASTHMA 04/26/2016 Elio Rodarte Z68.37 BODY MASS INDEX (BMI) 37.0-37.9, ADULT 04/26/2016 Elio Rodarte E11.9 TYPE 2 DIABETES MELLITUS WITHOUT COMPLIC 04/26/2016 Elio Rodarte G47.33 OBSTRUCTIVE SLEEP APNEA (ADULT) (PEDIATR 04/26/2016 Elio Rodarte I10 ESSENTIAL (PRIMARY) HYPERTENSION 04/26/2016 Elio Rodarte J45.998 OTHER ASTHMA 04/26/2016 Elio Rodarte Z68.37 BODY MASS INDEX (BMI) 37.0-37.9, ADULT 04/26/2016 Elio Rodarte E11.9 TYPE 2 DIABETES MELLITUS WITHOUT COMPLIC 04/26/2016 Elio Rodarte G47.33 OBSTRUCTIVE SLEEP APNEA (ADULT) (PEDIATR 04/26/2016 Elio Rodarte I10 ESSENTIAL (PRIMARY) HYPERTENSION 04/26/2016 Elio Rodarte J45.998 OTHER ASTHMA 04/26/2016 Elio Rodarte Z68.36 BODY MASS INDEX (BMI) 36.0-36.9, ADULT 04/26/2016 Elio Rodarte E11.9 TYPE 2 DIABETES MELLITUS WITHOUT COMPLIC 04/26/2016 Elio Rodarte G47.33 OBSTRUCTIVE SLEEP APNEA (ADULT) (PEDIATR 04/26/2016 Elio Rodarte I10 ESSENTIAL (PRIMARY) HYPERTENSION 04/26/2016 Elio Rodarte J45.998 OTHER ASTHMA 04/26/2016 Elio Rodarte Z68.36 BODY MASS INDEX (BMI) 36.0-36.9, ADULT 04/30/2016 Elio Rodarte E11.9 TYPE 2 DIABETES MELLITUS WITHOUT COMPLIC 04/30/2016 Elio Rodarte G47.33 OBSTRUCTIVE SLEEP APNEA (ADULT) (PEDIATR 04/30/2016 Elio Rodarte I10 ESSENTIAL (PRIMARY) HYPERTENSION 04/30/2016 Elio Rodarte J45.998 OTHER ASTHMA 04/30/2016 Elio Rodarte Z68.36 BODY MASS INDEX (BMI) 36.0-36.9, ADULT 05/02/2016 Elio Rodarte E11.9 TYPE 2 DIABETES MELLITUS WITHOUT COMPLIC 05/02/2016 Elio Rodarte G47.33 OBSTRUCTIVE SLEEP APNEA (ADULT) (PEDIATR 05/02/2016 Elio Rodaret I10 ESSENTIAL (PRIMARY) HYPERTENSION 05/02/2016 Elio Rodarte J45.998 OTHER ASTHMA 05/02/2016 Elio Rodarte Z68.36 BODY MASS INDEX (BMI) 36.0-36.9, ADULT 05/03/2016 Elio Rodarte E04.8 OTHER SPECIFIED NONTOXIC GOITER 05/03/2016 Elio Rodarte E07.89 OTHER SPECIFIED DISORDERS OF THYROID 05/03/2016 Elio Rodarte Z68.36 BODY MASS INDEX (BMI) 36.0-36.9, ADULT 05/03/2016 Elio Rodarte E11.9 TYPE 2 DIABETES MELLITUS WITHOUT COMPLIC 05/03/2016 Elio Rodarte G47.33 OBSTRUCTIVE SLEEP APNEA (ADULT) (PEDIATR 05/03/2016 Elio Rodarte I10 ESSENTIAL (PRIMARY) HYPERTENSION 05/03/2016 Elio Rodarte J45.998 OTHER ASTHMA 05/03/2016 Elio Rodarte Z68.36 BODY MASS INDEX (BMI) 36.0-36.9, ADULT 05/03/2016 Elio Rodarte E11.9 TYPE 2 DIABETES MELLITUS WITHOUT COMPLIC 05/03/2016 Elio Rodarte G47.33 OBSTRUCTIVE SLEEP APNEA (ADULT) (PEDIATR 05/03/2016 Eilo Rodarte I10 ESSENTIAL (PRIMARY) HYPERTENSION 05/03/2016 Elio Rodarte J45.998 OTHER ASTHMA 05/03/2016 Elio Rodarte Z68.36 BODY MASS INDEX (BMI) 36.0-36.9, ADULT 05/05/2016 Elio Rodarte E04.8 OTHER SPECIFIED NONTOXIC GOITER 05/05/2016 Elio Rodarte E07.89 OTHER SPECIFIED DISORDERS OF THYROID 05/05/2016 Elio Rodarte Z68.36 BODY MASS INDEX (BMI) 36.0-36.9, ADULT 05/08/2016 Elio Rodarte E11.9 TYPE 2 DIABETES MELLITUS WITHOUT COMPLIC 05/08/2016 Elio Rodarte G47.33 OBSTRUCTIVE SLEEP APNEA (ADULT) (PEDIATR 05/08/2016 Elio Rodarte I10 ESSENTIAL (PRIMARY) HYPERTENSION 05/08/2016 Elio Rodarte J45.998 OTHER ASTHMA 05/08/2016 Elio Rodarte Z68.36 BODY MASS INDEX (BMI) 36.0-36.9, ADULT 05/15/2016 Elio Rodarte E11.9 TYPE 2 DIABETES MELLITUS WITHOUT COMPLIC 05/15/2016 Elio Rodarte G47.33 OBSTRUCTIVE SLEEP APNEA (ADULT) (PEDIATR 05/15/2016 Elio Rodarte I10 ESSENTIAL (PRIMARY) HYPERTENSION 05/15/2016 Elio Rodarte J45.998 OTHER ASTHMA 05/15/2016 Elio Rodarte Z68.36 BODY MASS INDEX (BMI) 36.0-36.9, ADULT 05/16/2016 Elio Rodarte E11.9 TYPE 2 DIABETES MELLITUS WITHOUT COMPLIC 05/16/2016 Elio Rodarte G47.33 OBSTRUCTIVE SLEEP APNEA (ADULT) (PEDIATR 05/16/2016 Elio Rodarte I10 ESSENTIAL (PRIMARY) HYPERTENSION 05/16/2016 Elio Rodarte J45.998 OTHER ASTHMA 05/16/2016 Elio Rodarte Z68.36 BODY MASS INDEX (BMI) 36.0-36.9, ADULT 05/16/2016 Alo Villa Z12.31 ENCNTR SCREEN MAMMOGRAM FOR MALIGNANT NE 05/16/2016 LLOYD MALLOY E66.9 OBESITY, UNSPECIFIED 05/16/2016 LLOYD MALLOY 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 05/16/2016 LLOYD MALLOY E88.81 METABOLIC SYNDROME 05/16/2016 LLOYD MALLOY F41.1 GENERALIZED ANXIETY DISORDER 05/16/2016 LLOYD MALLOY G40.909 EPILEPSY, UNSP, NOT INTRACTABLE, WITHOUT 05/16/2016 LLOYD MALLOY G47.30 SLEEP APNEA, UNSPECIFIED 05/16/2016 LLOYD MALLOY I10 ESSENTIAL (PRIMARY) HYPERTENSION 05/16/2016 LLOYD MALLOY J45.909 UNSPECIFIED ASTHMA, UNCOMPLICATED 05/16/2016 LLOYD MALLOY K21.9 GASTRO-ESOPHAGEAL REFLUX DISEASE WITHOUT 05/16/2016 LLOYD MALLOY K31.84 GASTROPARESIS 05/16/2016 LLOYD MALLOY Z68.39 BODY MASS INDEX (BMI) 39.0-39.9, ADULT 05/16/2016 Elio Rodarte E66.9 OBESITY, UNSPECIFIED 05/16/2016 Elio Rodarte 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 05/16/2016 Elio Rodarte E88.81 METABOLIC SYNDROME 05/16/2016 Elio Rodarte F41.1 GENERALIZED ANXIETY DISORDER 05/16/2016 Elio Rodarte G40.909 EPILEPSY, UNSP, NOT INTRACTABLE, WITHOUT 05/16/2016 Elio Rodarte G47.30 SLEEP APNEA, UNSPECIFIED 05/16/2016 Elio Rodarte I10 ESSENTIAL (PRIMARY) HYPERTENSION 05/16/2016 Elio Rodarte J45.909 UNSPECIFIED ASTHMA, UNCOMPLICATED 05/16/2016 Elio Rodarte K21.9 GASTRO-ESOPHAGEAL REFLUX DISEASE WITHOUT 05/16/2016 Elio Rodarte K31.84 GASTROPARESIS 05/16/2016 Elio Rodarte Z68.39 BODY MASS INDEX (BMI) 39.0-39.9, ADULT 05/16/2016 Elio Rodarte E66.9 OBESITY, UNSPECIFIED 05/16/2016 Elio Rodarte 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 05/16/2016 Elio Rodarte E88.81 METABOLIC SYNDROME 05/16/2016 Elio Rodarte F41.1 GENERALIZED ANXIETY DISORDER 05/16/2016 Elio Rodarte G40.909 EPILEPSY, UNSP, NOT INTRACTABLE, WITHOUT 05/16/2016 Elio Rodarte G47.30 SLEEP APNEA, UNSPECIFIED 05/16/2016 Elio Rodarte I10 ESSENTIAL (PRIMARY) HYPERTENSION 05/16/2016 Elio Rodarte J45.909 UNSPECIFIED ASTHMA, UNCOMPLICATED 05/16/2016 Elio Rodarte K21.9 GASTRO-ESOPHAGEAL REFLUX DISEASE WITHOUT 05/16/2016 Elio Rodarte K31.84 GASTROPARESIS 05/16/2016 Elio Rodarte M19.90 UNSPECIFIED OSTEOARTHRITIS, UNSPECIFIED 05/16/2016 Elio Rodarte Z68.39 BODY MASS INDEX (BMI) 39.0-39.9, ADULT 05/16/2016 Elio Rodarte E66.9 OBESITY, UNSPECIFIED 05/16/2016 Elio Rodarte 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 05/16/2016 Elio Rodarte E88.81 METABOLIC SYNDROME 05/16/2016 Elio Rodarte F41.1 GENERALIZED ANXIETY DISORDER 05/16/2016 Elio Rodarte G40.909 EPILEPSY, UNSP, NOT INTRACTABLE, WITHOUT 05/16/2016 Elio Rodarte G47.30 SLEEP APNEA, UNSPECIFIED 05/16/2016 Elio Rodarte I10 ESSENTIAL (PRIMARY) HYPERTENSION 05/16/2016 Elio Rodarte J45.909 UNSPECIFIED ASTHMA, UNCOMPLICATED 05/16/2016 Elio Rodarte K21.9 GASTRO-ESOPHAGEAL REFLUX DISEASE WITHOUT 05/16/2016 Elio Rodarte K31.84 GASTROPARESIS 05/16/2016 Elio Rodarte M19.90 UNSPECIFIED OSTEOARTHRITIS, UNSPECIFIED 05/16/2016 Elio Rodarte Z68.39 BODY MASS INDEX (BMI) 39.0-39.9, ADULT 05/16/2016 Elio Rodarte E66.9 OBESITY, UNSPECIFIED 05/16/2016 Elio Rodarte 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 05/16/2016 Elio Rodarte E88.81 METABOLIC SYNDROME 05/16/2016 Elio Rodarte F41.1 GENERALIZED ANXIETY DISORDER 05/16/2016 Elio Rodarte G40.909 EPILEPSY, UNSP, NOT INTRACTABLE, WITHOUT 05/16/2016 Elio Rodarte G47.30 SLEEP APNEA, UNSPECIFIED 05/16/2016 Elio Rodarte I10 ESSENTIAL (PRIMARY) HYPERTENSION 05/16/2016 Elio Rodarte J45.909 UNSPECIFIED ASTHMA, UNCOMPLICATED 05/16/2016 Elio Rodarte K21.9 GASTRO-ESOPHAGEAL REFLUX DISEASE WITHOUT 05/16/2016 Elio Rodarte K31.84 GASTROPARESIS 05/16/2016 Elio Rodarte M19.90 UNSPECIFIED OSTEOARTHRITIS, UNSPECIFIED 05/16/2016 Elio Rodarte Z68.38 BODY MASS INDEX (BMI) 38.0-38.9, ADULT 05/16/2016 Elio Rodarte E11.9 TYPE 2 DIABETES MELLITUS WITHOUT COMPLIC 05/16/2016 Elio Rodarte G47.33 OBSTRUCTIVE SLEEP APNEA (ADULT) (PEDIATR 05/16/2016 Elio Rodarte I10 ESSENTIAL (PRIMARY) HYPERTENSION 05/16/2016 Elio Rodarte J45.998 OTHER ASTHMA 05/16/2016 Elio Rodarte Z68.37 BODY MASS INDEX (BMI) 37.0-37.9, ADULT 05/16/2016 Elio Rodarte E11.9 TYPE 2 DIABETES MELLITUS WITHOUT COMPLIC 05/16/2016 Elio Rodarte G47.33 OBSTRUCTIVE SLEEP APNEA (ADULT) (PEDIATR 05/16/2016 Elio Rodarte I10 ESSENTIAL (PRIMARY) HYPERTENSION 05/16/2016 Elio Rodarte J45.998 OTHER ASTHMA 05/16/2016 Elio Rodarte Z68.37 BODY MASS INDEX (BMI) 37.0-37.9, ADULT 05/16/2016 Elio Rodarte E11.9 TYPE 2 DIABETES MELLITUS WITHOUT COMPLIC 05/16/2016 Elio Rodarte G47.33 OBSTRUCTIVE SLEEP APNEA (ADULT) (PEDIATR 05/16/2016 Elio Rodarte I10 ESSENTIAL (PRIMARY) HYPERTENSION 05/16/2016 Elio Rodarte J45.998 OTHER ASTHMA 05/16/2016 Elio Rodarte Z68.37 BODY MASS INDEX (BMI) 37.0-37.9, ADULT 05/16/2016 Elio Rodarte E11.9 TYPE 2 DIABETES MELLITUS WITHOUT COMPLIC 05/16/2016 Elio Rodarte G47.33 OBSTRUCTIVE SLEEP APNEA (ADULT) (PEDIATR 05/16/2016 Elio Rodarte I10 ESSENTIAL (PRIMARY) HYPERTENSION 05/16/2016 Elio Rodarte J45.998 OTHER ASTHMA 05/16/2016 Elio Rodarte Z68.36 BODY MASS INDEX (BMI) 36.0-36.9, ADULT 05/16/2016 Elio Rodarte E11.9 TYPE 2 DIABETES MELLITUS WITHOUT COMPLIC 05/16/2016 Elio Rodarte G47.33 OBSTRUCTIVE SLEEP APNEA (ADULT) (PEDIATR 05/16/2016 Elio Rodarte I10 ESSENTIAL (PRIMARY) HYPERTENSION 05/16/2016 Elio Rodarte J45.998 OTHER ASTHMA 05/16/2016 Elio Rodarte Z68.36 BODY MASS INDEX (BMI) 36.0-36.9, ADULT 05/16/2016 Elio Rodarte E11.9 TYPE 2 DIABETES MELLITUS WITHOUT COMPLIC 05/16/2016 Elio Rodarte G47.33 OBSTRUCTIVE SLEEP APNEA (ADULT) (PEDIATR 05/16/2016 Elio Rodarte I10 ESSENTIAL (PRIMARY) HYPERTENSION 05/16/2016 Elio Rodarte J45.998 OTHER ASTHMA 05/16/2016 Eilo Rodarte Z68.36 BODY MASS INDEX (BMI) 36.0-36.9, ADULT 05/16/2016 Elio Rodarte E04.8 OTHER SPECIFIED NONTOXIC GOITER 05/16/2016 Elio Rodarte E07.89 OTHER SPECIFIED DISORDERS OF THYROID 05/16/2016 Elio Rodarte Z68.36 BODY MASS INDEX (BMI) 36.0-36.9, ADULT 05/16/2016 Elio Rodarte E11.9 TYPE 2 DIABETES MELLITUS WITHOUT COMPLIC 05/16/2016 Elio Rodarte G47.33 OBSTRUCTIVE SLEEP APNEA (ADULT) (PEDIATR 05/16/2016 Elio Rodarte I10 ESSENTIAL (PRIMARY) HYPERTENSION 05/16/2016 Elio Rodarte J45.998 OTHER ASTHMA 05/16/2016 Elio Rodarte Z68.36 BODY MASS INDEX (BMI) 36.0-36.9, ADULT 05/22/2016 Elio Rodarte E04.8 OTHER SPECIFIED NONTOXIC GOITER 05/22/2016 Elio Rodarte E07.89 OTHER SPECIFIED DISORDERS OF THYROID 05/22/2016 Elio Rodarte Z68.36 BODY MASS INDEX (BMI) 36.0-36.9, ADULT 05/23/2016 Elio Rodarte E11.9 TYPE 2 DIABETES MELLITUS WITHOUT COMPLIC 05/23/2016 Elio Rodarte G47.33 OBSTRUCTIVE SLEEP APNEA (ADULT) (PEDIATR 05/23/2016 Elio Rodarte I10 ESSENTIAL (PRIMARY) HYPERTENSION 05/23/2016 Elio Rodarte J45.998 OTHER ASTHMA 05/23/2016 Elio Rodarte Z68.36 BODY MASS INDEX (BMI) 36.0-36.9, ADULT 05/24/2016 Elio Rodarte E11.9 TYPE 2 DIABETES MELLITUS WITHOUT COMPLIC 05/24/2016 Elio Rodarte G47.33 OBSTRUCTIVE SLEEP APNEA (ADULT) (PEDIATR 05/24/2016 Elio Rodarte I10 ESSENTIAL (PRIMARY) HYPERTENSION 05/24/2016 Elio Rodarte J45.998 OTHER ASTHMA 05/24/2016 Elio Rodarte Z68.36 BODY MASS INDEX (BMI) 36.0-36.9, ADULT 05/29/2016 Elio Rodarte E04.8 OTHER SPECIFIED NONTOXIC GOITER 05/29/2016 Elio Rodarte E07.89 OTHER SPECIFIED DISORDERS OF THYROID 05/29/2016 Elio Rodarte Z68.36 BODY MASS INDEX (BMI) 36.0-36.9, ADULT 05/29/2016 Elio Rodarte E11.9 TYPE 2 DIABETES MELLITUS WITHOUT COMPLIC 05/29/2016 Elio Rodarte G47.33 OBSTRUCTIVE SLEEP APNEA (ADULT) (PEDIATR 05/29/2016 Elio Rodarte I10 ESSENTIAL (PRIMARY) HYPERTENSION 05/29/2016 Elio Rodarte J45.998 OTHER ASTHMA 05/29/2016 Elio Rodarte Z68.36 BODY MASS INDEX (BMI) 36.0-36.9, ADULT 05/29/2016 Elio Rodarte E11.9 TYPE 2 DIABETES MELLITUS WITHOUT COMPLIC 05/29/2016 Elio Rodarte G47.33 OBSTRUCTIVE SLEEP APNEA (ADULT) (PEDIATR 05/29/2016 Elio Rodarte I10 ESSENTIAL (PRIMARY) HYPERTENSION 05/29/2016 Elio Rodarte J45.998 OTHER ASTHMA 05/29/2016 Elio Rodarte Z68.36 BODY MASS INDEX (BMI) 36.0-36.9, ADULT 06/05/2016 Elio Rodarte E04.8 OTHER SPECIFIED NONTOXIC GOITER 06/05/2016 Elio Rodarte E07.89 OTHER SPECIFIED DISORDERS OF THYROID 06/05/2016 Elio Rodarte Z68.36 BODY MASS INDEX (BMI) 36.0-36.9, ADULT 06/13/2016 Elio Rodarte E11.9 TYPE 2 DIABETES MELLITUS WITHOUT COMPLIC 06/13/2016 Elio Rodarte G47.33 OBSTRUCTIVE SLEEP APNEA (ADULT) (PEDIATR 06/13/2016 Elio Rodarte I10 ESSENTIAL (PRIMARY) HYPERTENSION 06/13/2016 Elio Rodarte J45.998 OTHER ASTHMA 06/13/2016 Elio Rodarte Z68.36 BODY MASS INDEX (BMI) 36.0-36.9, ADULT 06/18/2016 Elio Rodarte E11.9 TYPE 2 DIABETES MELLITUS WITHOUT COMPLIC 06/18/2016 Elio Rodarte G47.33 OBSTRUCTIVE SLEEP APNEA (ADULT) (PEDIATR 06/18/2016 Elio Rodarte I10 ESSENTIAL (PRIMARY) HYPERTENSION 06/18/2016 Elio Rodarte J45.998 OTHER ASTHMA 06/18/2016 Elio Rodarte Z68.36 BODY MASS INDEX (BMI) 36.0-36.9, ADULT 06/20/2016 Elio Rodarte E11.9 TYPE 2 DIABETES MELLITUS WITHOUT COMPLIC 06/20/2016 Elio Rodarte G47.33 OBSTRUCTIVE SLEEP APNEA (ADULT) (PEDIATR 06/20/2016 Elio Rodarte I10 ESSENTIAL (PRIMARY) HYPERTENSION 06/20/2016 Elio Rodarte J45.998 OTHER ASTHMA 06/20/2016 Elio Rodarte Z68.36 BODY MASS INDEX (BMI) 36.0-36.9, ADULT 07/04/2016 Elio Rodarte E11.9 TYPE 2 DIABETES MELLITUS WITHOUT COMPLIC 07/04/2016 Elio Rodarte G47.33 OBSTRUCTIVE SLEEP APNEA (ADULT) (PEDIATR 07/04/2016 Elio Rodarte I10 ESSENTIAL (PRIMARY) HYPERTENSION 07/04/2016 Elio Rodarte J45.998 OTHER ASTHMA 07/04/2016 Elio Rodarte Z68.36 BODY MASS INDEX (BMI) 36.0-36.9, ADULT 07/10/2016 Elio Rodarte E11.9 TYPE 2 DIABETES MELLITUS WITHOUT COMPLIC 07/10/2016 Elio Rodarte G47.33 OBSTRUCTIVE SLEEP APNEA (ADULT) (PEDIATR 07/10/2016 Elio Rodarte I10 ESSENTIAL (PRIMARY) HYPERTENSION 07/10/2016 Elio Rodarte J45.998 OTHER ASTHMA 07/10/2016 Elio Rodarte Z68.36 BODY MASS INDEX (BMI) 36.0-36.9, ADULT 07/22/2016 Elio Rodarte E11.9 TYPE 2 DIABETES MELLITUS WITHOUT COMPLIC 07/22/2016 Elio Rodarte G47.33 OBSTRUCTIVE SLEEP APNEA (ADULT) (PEDIATR 07/22/2016 Elio Rodarte I10 ESSENTIAL (PRIMARY) HYPERTENSION 07/22/2016 Elio Rodarte J45.998 OTHER ASTHMA 07/22/2016 Elio Rodarte Z68.35 BODY MASS INDEX (BMI) 35.0-35.9, ADULT 07/29/2016 LLOYD MALLOY E66.9 OBESITY, UNSPECIFIED 07/29/2016 LLOYD MALLOY 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 07/29/2016 LLOYD MALLOY E88.81 METABOLIC SYNDROME 07/29/2016 LLOYD MALLOY F41.1 GENERALIZED ANXIETY DISORDER 07/29/2016 LLOYD MALLOY G40.909 EPILEPSY, UNSP, NOT INTRACTABLE, WITHOUT 07/29/2016 LLOYD MALLOY G47.30 SLEEP APNEA, UNSPECIFIED 07/29/2016 LLOYD MALLOY I10 ESSENTIAL (PRIMARY) HYPERTENSION 07/29/2016 LLOYD MALLOY J45.909 UNSPECIFIED ASTHMA, UNCOMPLICATED 07/29/2016 LLOYD MALLOY K21.9 GASTRO-ESOPHAGEAL REFLUX DISEASE WITHOUT 07/29/2016 LLOYD MALLOY K31.84 GASTROPARESIS 07/29/2016 LLOYD MALLOY Z68.39 BODY MASS INDEX (BMI) 39.0-39.9, ADULT 07/29/2016 Elio Rodarte E66.9 OBESITY, UNSPECIFIED 07/29/2016 Elio Rodarte 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 07/29/2016 Elio Rodarte E88.81 METABOLIC SYNDROME 07/29/2016 Elio Rodarte F41.1 GENERALIZED ANXIETY DISORDER 07/29/2016 Elio Rodarte G40.909 EPILEPSY, UNSP, NOT INTRACTABLE, WITHOUT 07/29/2016 Elio Rodarte G47.30 SLEEP APNEA, UNSPECIFIED 07/29/2016 Elio Rodarte I10 ESSENTIAL (PRIMARY) HYPERTENSION 07/29/2016 Elio Rodarte J45.909 UNSPECIFIED ASTHMA, UNCOMPLICATED 07/29/2016 Elio Rodarte K21.9 GASTRO-ESOPHAGEAL REFLUX DISEASE WITHOUT 07/29/2016 Elio Rodarte K31.84 GASTROPARESIS 07/29/2016 Elio Rodarte Z68.39 BODY MASS INDEX (BMI) 39.0-39.9, ADULT 07/29/2016 Elio Rodarte E66.9 OBESITY, UNSPECIFIED 07/29/2016 Elio Rodarte 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 07/29/2016 Elio Rodarte E88.81 METABOLIC SYNDROME 07/29/2016 Elio Rodarte F41.1 GENERALIZED ANXIETY DISORDER 07/29/2016 Elio Rodarte G40.909 EPILEPSY, UNSP, NOT INTRACTABLE, WITHOUT 07/29/2016 Elio Rodarte G47.30 SLEEP APNEA, UNSPECIFIED 07/29/2016 Elio Rodarte I10 ESSENTIAL (PRIMARY) HYPERTENSION 07/29/2016 Elio Rodarte J45.909 UNSPECIFIED ASTHMA, UNCOMPLICATED 07/29/2016 Elio Rodarte K21.9 GASTRO-ESOPHAGEAL REFLUX DISEASE WITHOUT 07/29/2016 Elio Rodarte K31.84 GASTROPARESIS 07/29/2016 Elio Rodarte M19.90 UNSPECIFIED OSTEOARTHRITIS, UNSPECIFIED 07/29/2016 Elio Rodarte Z68.39 BODY MASS INDEX (BMI) 39.0-39.9, ADULT 07/29/2016 Elio Rodarte E66.9 OBESITY, UNSPECIFIED 07/29/2016 Elio Rodarte 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 07/29/2016 Elio Rodarte E88.81 METABOLIC SYNDROME 07/29/2016 Elio Rodrate F41.1 GENERALIZED ANXIETY DISORDER 07/29/2016 Elio Rodarte G40.909 EPILEPSY, UNSP, NOT INTRACTABLE, WITHOUT 07/29/2016 Elio Rodarte G47.30 SLEEP APNEA, UNSPECIFIED 07/29/2016 Elio Rodarte I10 ESSENTIAL (PRIMARY) HYPERTENSION 07/29/2016 Elio Rodarte J45.909 UNSPECIFIED ASTHMA, UNCOMPLICATED 07/29/2016 Elio Rodarte K21.9 GASTRO-ESOPHAGEAL REFLUX DISEASE WITHOUT 07/29/2016 Elio Rodarte K31.84 GASTROPARESIS 07/29/2016 Elio Rodarte M19.90 UNSPECIFIED OSTEOARTHRITIS, UNSPECIFIED 07/29/2016 Elio Rodarte Z68.39 BODY MASS INDEX (BMI) 39.0-39.9, ADULT 07/29/2016 Elio Rodarte E66.9 OBESITY, UNSPECIFIED 07/29/2016 Elio Rodarte 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 07/29/2016 Elio Rodarte E88.81 METABOLIC SYNDROME 07/29/2016 Elio Rodarte F41.1 GENERALIZED ANXIETY DISORDER 07/29/2016 Elio Rodarte G40.909 EPILEPSY, UNSP, NOT INTRACTABLE, WITHOUT 07/29/2016 Elio Rodarte G47.30 SLEEP APNEA, UNSPECIFIED 07/29/2016 Elio Rodarte I10 ESSENTIAL (PRIMARY) HYPERTENSION 07/29/2016 Elio Rodarte J45.909 UNSPECIFIED ASTHMA, UNCOMPLICATED 07/29/2016 Elio Rodarte K21.9 GASTRO-ESOPHAGEAL REFLUX DISEASE WITHOUT 07/29/2016 Elio Rodarte K31.84 GASTROPARESIS 07/29/2016 Elio Rodarte M19.90 UNSPECIFIED OSTEOARTHRITIS, UNSPECIFIED 07/29/2016 Elio Rodarte Z68.38 BODY MASS INDEX (BMI) 38.0-38.9, ADULT 07/29/2016 Elio Rodarte E11.9 TYPE 2 DIABETES MELLITUS WITHOUT COMPLIC 07/29/2016 Elio Rodarte G47.33 OBSTRUCTIVE SLEEP APNEA (ADULT) (PEDIATR 07/29/2016 Elio Rodarte I10 ESSENTIAL (PRIMARY) HYPERTENSION 07/29/2016 Elio Rodarte J45.998 OTHER ASTHMA 07/29/2016 Elio Rodarte Z68.37 BODY MASS INDEX (BMI) 37.0-37.9, ADULT 07/29/2016 Elio Rodarte E11.9 TYPE 2 DIABETES MELLITUS WITHOUT COMPLIC 07/29/2016 Elio Rodarte G47.33 OBSTRUCTIVE SLEEP APNEA (ADULT) (PEDIATR 07/29/2016 Elio Rodarte I10 ESSENTIAL (PRIMARY) HYPERTENSION 07/29/2016 Elio Rodarte J45.998 OTHER ASTHMA 07/29/2016 Elio Rodarte Z68.37 BODY MASS INDEX (BMI) 37.0-37.9, ADULT 07/29/2016 Elio Rodarte E11.9 TYPE 2 DIABETES MELLITUS WITHOUT COMPLIC 07/29/2016 Elio Rodarte G47.33 OBSTRUCTIVE SLEEP APNEA (ADULT) (PEDIATR 07/29/2016 Elio Rodarte I10 ESSENTIAL (PRIMARY) HYPERTENSION 07/29/2016 Elio Rodarte J45.998 OTHER ASTHMA 07/29/2016 Elio Rodarte Z68.37 BODY MASS INDEX (BMI) 37.0-37.9, ADULT 07/29/2016 Elio Rodarte E11.9 TYPE 2 DIABETES MELLITUS WITHOUT COMPLIC 07/29/2016 Elio Rodarte G47.33 OBSTRUCTIVE SLEEP APNEA (ADULT) (PEDIATR 07/29/2016 Elio Rodarte I10 ESSENTIAL (PRIMARY) HYPERTENSION 07/29/2016 Elio Rodarte J45.998 OTHER ASTHMA 07/29/2016 Elio Rodarte Z68.36 BODY MASS INDEX (BMI) 36.0-36.9, ADULT 07/29/2016 Elio Rodarte E11.9 TYPE 2 DIABETES MELLITUS WITHOUT COMPLIC 07/29/2016 Elio Rodarte G47.33 OBSTRUCTIVE SLEEP APNEA (ADULT) (PEDIATR 07/29/2016 Elio Rodarte I10 ESSENTIAL (PRIMARY) HYPERTENSION 07/29/2016 Elio Rodarte J45.998 OTHER ASTHMA 07/29/2016 Elio Rodarte Z68.36 BODY MASS INDEX (BMI) 36.0-36.9, ADULT 07/29/2016 Elio Rodarte E11.9 TYPE 2 DIABETES MELLITUS WITHOUT COMPLIC 07/29/2016 Elio Rodarte G47.33 OBSTRUCTIVE SLEEP APNEA (ADULT) (PEDIATR 07/29/2016 Elio Rodarte I10 ESSENTIAL (PRIMARY) HYPERTENSION 07/29/2016 Elio Rodarte J45.998 OTHER ASTHMA 07/29/2016 Eilo Rodarte Z68.36 BODY MASS INDEX (BMI) 36.0-36.9, ADULT 07/29/2016 Elio Rodarte E04.8 OTHER SPECIFIED NONTOXIC GOITER 07/29/2016 Elio Rodarte E07.89 OTHER SPECIFIED DISORDERS OF THYROID 07/29/2016 Elio Rodarte Z68.36 BODY MASS INDEX (BMI) 36.0-36.9, ADULT 07/29/2016 Elio Rodarte E11.9 TYPE 2 DIABETES MELLITUS WITHOUT COMPLIC 07/29/2016 Elio Rodarte G47.33 OBSTRUCTIVE SLEEP APNEA (ADULT) (PEDIATR 07/29/2016 Elio Rodarte I10 ESSENTIAL (PRIMARY) HYPERTENSION 07/29/2016 Elio Rodarte J45.998 OTHER ASTHMA 07/29/2016 Elio Rodarte Z68.36 BODY MASS INDEX (BMI) 36.0-36.9, ADULT 07/29/2016 Elio Rodarte E11.9 TYPE 2 DIABETES MELLITUS WITHOUT COMPLIC 07/29/2016 Elio Rodarte G47.33 OBSTRUCTIVE SLEEP APNEA (ADULT) (PEDIATR 07/29/2016 Elio Rodarte I10 ESSENTIAL (PRIMARY) HYPERTENSION 07/29/2016 Elio Rodarte J45.998 OTHER ASTHMA 07/29/2016 Elio Rodarte Z68.35 BODY MASS INDEX (BMI) 35.0-35.9, ADULT 08/07/2016 Elio Rodarte E11.9 TYPE 2 DIABETES MELLITUS WITHOUT COMPLIC 08/07/2016 Elio Rodarte G47.33 OBSTRUCTIVE SLEEP APNEA (ADULT) (PEDIATR 08/07/2016 Elio Rodarte I10 ESSENTIAL (PRIMARY) HYPERTENSION 08/07/2016 Elio Rodarte J45.998 OTHER ASTHMA 08/07/2016 Elio Rodarte Z68.35 BODY MASS INDEX (BMI) 35.0-35.9, ADULT 08/07/2016 KRISTEN FELDMAN F32.9 MAJOR DEPRESSIVE DISORDER, SINGLE EPISODE, UNSPECIFIED 08/07/2016 KRISTEN FELDMAN F41.9 ANXIETY DISORDER, UNSPECIFIED 08/07/2016 KRISTEN FELDMAN F43.12 POST-TRAUMATIC STRESS DISORDER, CHRONIC 08/07/2016 KRISTEN FELDMAN G43.909 MIGRAINE, UNSPECIFIED, NOT INTRACTABLE, WITHOUT STATUS MIGRAINOSUS 08/07/2016 KRISTEN FELDMAN J44.9 CHRONIC OBSTRUCTIVE PULMONARY DISEASE, UNSPECIFIED 08/07/2016 KRISTEN FELDMAN J45.909 UNSPECIFIED ASTHMA, UNCOMPLICATED 08/07/2016 KRISTEN FELDMAN M79.605 PAIN IN LEFT LEG 08/07/2016 KRISTEN FELDMAN Z79.82 LONGTERM (CURRENT) USE OF ASPIRIN 08/07/2016 KRISTEN FELDMAN Z79.899 OTHER LONGTERM (CURRENT) DRUG THERAPY 08/07/2016 KRISTEN FELDMAN 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 08/07/2016 KRISTEN FELDMAN Z87.891 PERSONAL HISTORY OF NICOTINE DEPENDENCE 08/07/2016 KRISTEN FELDMAN Z90.49 ACQUIRED ABSENCE OF OTHER SPECIFIED PARTS OF DIGESTIVE TRACT 08/07/2016 KRISTEN FELDMAN Z90.710 ACQUIRED ABSENCE OF BOTH CERVIX AND UTERUS 08/08/2016 Elio Rodarte E11.9 TYPE 2 DIABETES MELLITUS WITHOUT COMPLIC 08/08/2016 Elio Rodarte G47.33 OBSTRUCTIVE SLEEP APNEA (ADULT) (PEDIATR 08/08/2016 Elio Rodarte I10 ESSENTIAL (PRIMARY) HYPERTENSION 08/08/2016 Elio Rodarte J45.998 OTHER ASTHMA 08/08/2016 Elio Rodarte Z68.35 BODY MASS INDEX (BMI) 35.0-35.9, ADULT 08/14/2016 Elio Rodarte E11.9 TYPE 2 DIABETES MELLITUS WITHOUT COMPLIC 08/14/2016 Elio Rodarte G47.33 OBSTRUCTIVE SLEEP APNEA (ADULT) (PEDIATR 08/14/2016 Elio Rodarte I10 ESSENTIAL (PRIMARY) HYPERTENSION 08/14/2016 Elio Rodarte J45.998 OTHER ASTHMA 08/14/2016 Elio Rodarte Z68.35 BODY MASS INDEX (BMI) 35.0-35.9, ADULT 08/14/2016 Elio Rodarte E11.9 TYPE 2 DIABETES MELLITUS WITHOUT COMPLIC 08/14/2016 Elio Rodarte G47.33 OBSTRUCTIVE SLEEP APNEA (ADULT) (PEDIATR 08/14/2016 Elio Rodarte I10 ESSENTIAL (PRIMARY) HYPERTENSION 08/14/2016 Elio Rodarte J45.998 OTHER ASTHMA 08/14/2016 Elio Rodarte Z68.35 BODY MASS INDEX (BMI) 35.0-35.9, ADULT 08/21/2016 Juventino Verdugo K92.1 Melena 08/30/2016 Elio Rodarte E11.9 TYPE 2 DIABETES MELLITUS WITHOUT COMPLIC 08/30/2016 Elio Rodarte G47.33 OBSTRUCTIVE SLEEP APNEA (ADULT) (PEDIATR 08/30/2016 Elio Rodarte I10 ESSENTIAL (PRIMARY) HYPERTENSION 08/30/2016 Elio Rodarte J45.998 OTHER ASTHMA 08/30/2016 Elio Rodarte Z68.35 BODY MASS INDEX (BMI) 35.0-35.9, ADULT 09/03/2016 Elio Rodarte E11.9 TYPE 2 DIABETES MELLITUS WITHOUT COMPLIC 09/03/2016 Elio Rodarte G47.33 OBSTRUCTIVE SLEEP APNEA (ADULT) (PEDIATR 09/03/2016 Elio Rodarte I10 ESSENTIAL (PRIMARY) HYPERTENSION 09/03/2016 Elio Rodarte J45.998 OTHER ASTHMA 09/03/2016 Elio Rodarte Z68.35 BODY MASS INDEX (BMI) 35.0-35.9, ADULT 09/08/2016 Elio Rodarte E66.9 OBESITY, UNSPECIFIED 09/08/2016 Elio Rodarte 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 09/08/2016 Elio Rodarte E88.81 METABOLIC SYNDROME 09/08/2016 Elio Rodarte F41.1 GENERALIZED ANXIETY DISORDER 09/08/2016 Elio Rodarte G40.909 EPILEPSY, UNSP, NOT INTRACTABLE, WITHOUT 09/08/2016 Elio Rodarte G47.30 SLEEP APNEA, UNSPECIFIED 09/08/2016 Elio Rodarte I10 ESSENTIAL (PRIMARY) HYPERTENSION 09/08/2016 Elio Rodarte J45.909 UNSPECIFIED ASTHMA, UNCOMPLICATED 09/08/2016 Elio Rodarte K21.9 GASTRO-ESOPHAGEAL REFLUX DISEASE WITHOUT 09/08/2016 Elio Rodarte K31.84 GASTROPARESIS 09/08/2016 Elio Rodarte Z68.39 BODY MASS INDEX (BMI) 39.0-39.9, ADULT 09/08/2016 Elio Rodarte E66.9 OBESITY, UNSPECIFIED 09/08/2016 Elio Rodarte 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 09/08/2016 Elio Rodarte E88.81 METABOLIC SYNDROME 09/08/2016 Elio Rodarte F41.1 GENERALIZED ANXIETY DISORDER 09/08/2016 Elio Rodarte G40.909 EPILEPSY, UNSP, NOT INTRACTABLE, WITHOUT 09/08/2016 Elio Rodarte G47.30 SLEEP APNEA, UNSPECIFIED 09/08/2016 Elio Rodarte I10 ESSENTIAL (PRIMARY) HYPERTENSION 09/08/2016 Elio Rodarte J45.909 UNSPECIFIED ASTHMA, UNCOMPLICATED 09/08/2016 Elio Rodarte K21.9 GASTRO-ESOPHAGEAL REFLUX DISEASE WITHOUT 09/08/2016 Elio Rodarte K31.84 GASTROPARESIS 09/08/2016 Elio Rodarte M19.90 UNSPECIFIED OSTEOARTHRITIS, UNSPECIFIED 09/08/2016 Elio Rodarte Z68.39 BODY MASS INDEX (BMI) 39.0-39.9, ADULT 09/08/2016 Elio Rodarte E66.9 OBESITY, UNSPECIFIED 09/08/2016 Elio Rodarte 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 09/08/2016 Elio Rodarte E88.81 METABOLIC SYNDROME 09/08/2016 Elio Rodarte F41.1 GENERALIZED ANXIETY DISORDER 09/08/2016 Elio Rodarte G40.909 EPILEPSY, UNSP, NOT INTRACTABLE, WITHOUT 09/08/2016 Elio Rodarte G47.30 SLEEP APNEA, UNSPECIFIED 09/08/2016 Elio Rodarte I10 ESSENTIAL (PRIMARY) HYPERTENSION 09/08/2016 Elio Rodarte J45.909 UNSPECIFIED ASTHMA, UNCOMPLICATED 09/08/2016 Elio Rodarte K21.9 GASTRO-ESOPHAGEAL REFLUX DISEASE WITHOUT 09/08/2016 Elio Rodarte K31.84 GASTROPARESIS 09/08/2016 Elio Rodarte M19.90 UNSPECIFIED OSTEOARTHRITIS, UNSPECIFIED 09/08/2016 Elio Rodarte Z68.39 BODY MASS INDEX (BMI) 39.0-39.9, ADULT 09/08/2016 Elio Rodarte E66.9 OBESITY, UNSPECIFIED 09/08/2016 Elio Rodarte 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 09/08/2016 Elio Rodarte E88.81 METABOLIC SYNDROME 09/08/2016 Elio Rodarte F41.1 GENERALIZED ANXIETY DISORDER 09/08/2016 Elio Rodarte G40.909 EPILEPSY, UNSP, NOT INTRACTABLE, WITHOUT 09/08/2016 Elio Rodarte G47.30 SLEEP APNEA, UNSPECIFIED 09/08/2016 Elio Rodarte I10 ESSENTIAL (PRIMARY) HYPERTENSION 09/08/2016 Elio Rodarte J45.909 UNSPECIFIED ASTHMA, UNCOMPLICATED 09/08/2016 Elio Rodarte K21.9 GASTRO-ESOPHAGEAL REFLUX DISEASE WITHOUT 09/08/2016 Elio Rodarte K31.84 GASTROPARESIS 09/08/2016 Elio Rodarte M19.90 UNSPECIFIED OSTEOARTHRITIS, UNSPECIFIED 09/08/2016 Elio Rodarte Z68.38 BODY MASS INDEX (BMI) 38.0-38.9, ADULT 09/08/2016 Elio Rodarte E11.9 TYPE 2 DIABETES MELLITUS WITHOUT COMPLIC 09/08/2016 Elio Rodarte G47.33 OBSTRUCTIVE SLEEP APNEA (ADULT) (PEDIATR 09/08/2016 Elio Rodarte I10 ESSENTIAL (PRIMARY) HYPERTENSION 09/08/2016 Elio Rodarte J45.998 OTHER ASTHMA 09/08/2016 Elio Rodarte Z68.37 BODY MASS INDEX (BMI) 37.0-37.9, ADULT 09/08/2016 Elio Rodarte E11.9 TYPE 2 DIABETES MELLITUS WITHOUT COMPLIC 09/08/2016 Elio Rodarte G47.33 OBSTRUCTIVE SLEEP APNEA (ADULT) (PEDIATR 09/08/2016 Elio Rodarte I10 ESSENTIAL (PRIMARY) HYPERTENSION 09/08/2016 Elio Rodarte J45.998 OTHER ASTHMA 09/08/2016 Elio Rodarte Z68.37 BODY MASS INDEX (BMI) 37.0-37.9, ADULT 09/08/2016 Eloi Rodarte E11.9 TYPE 2 DIABETES MELLITUS WITHOUT COMPLIC 09/08/2016 Elio Rodarte G47.33 OBSTRUCTIVE SLEEP APNEA (ADULT) (PEDIATR 09/08/2016 Elio Rodarte I10 ESSENTIAL (PRIMARY) HYPERTENSION 09/08/2016 Elio Rodarte J45.998 OTHER ASTHMA 09/08/2016 Elio Rodarte Z68.37 BODY MASS INDEX (BMI) 37.0-37.9, ADULT 09/08/2016 Elio Rodarte E11.9 TYPE 2 DIABETES MELLITUS WITHOUT COMPLIC 09/08/2016 Elio Rodarte G47.33 OBSTRUCTIVE SLEEP APNEA (ADULT) (PEDIATR 09/08/2016 Elio Rodarte I10 ESSENTIAL (PRIMARY) HYPERTENSION 09/08/2016 Elio Rodarte J45.998 OTHER ASTHMA 09/08/2016 Elio Rodarte Z68.36 BODY MASS INDEX (BMI) 36.0-36.9, ADULT 09/08/2016 Elio Rodarte E11.9 TYPE 2 DIABETES MELLITUS WITHOUT COMPLIC 09/08/2016 Elio Rodarte G47.33 OBSTRUCTIVE SLEEP APNEA (ADULT) (PEDIATR 09/08/2016 Elio Rodarte I10 ESSENTIAL (PRIMARY) HYPERTENSION 09/08/2016 Elio Rodarte J45.998 OTHER ASTHMA 09/08/2016 Elio Rodarte Z68.36 BODY MASS INDEX (BMI) 36.0-36.9, ADULT 09/08/2016 Elio Rodarte E11.9 TYPE 2 DIABETES MELLITUS WITHOUT COMPLIC 09/08/2016 Elio Rodarte G47.33 OBSTRUCTIVE SLEEP APNEA (ADULT) (PEDIATR 09/08/2016 Elio Rodarte I10 ESSENTIAL (PRIMARY) HYPERTENSION 09/08/2016 Elio Rodarte J45.998 OTHER ASTHMA 09/08/2016 Elio Rodarte Z68.36 BODY MASS INDEX (BMI) 36.0-36.9, ADULT 09/08/2016 Elio Rodarte E04.8 OTHER SPECIFIED NONTOXIC GOITER 09/08/2016 Elio Rodarte E07.89 OTHER SPECIFIED DISORDERS OF THYROID 09/08/2016 Elio Rodarte Z68.36 BODY MASS INDEX (BMI) 36.0-36.9, ADULT 09/08/2016 Elio Rodarte E11.9 TYPE 2 DIABETES MELLITUS WITHOUT COMPLIC 09/08/2016 Elio Rodarte G47.33 OBSTRUCTIVE SLEEP APNEA (ADULT) (PEDIATR 09/08/2016 Elio Rodarte I10 ESSENTIAL (PRIMARY) HYPERTENSION 09/08/2016 Elio Rodarte J45.998 OTHER ASTHMA 09/08/2016 Elio Rodarte Z68.36 BODY MASS INDEX (BMI) 36.0-36.9, ADULT 09/08/2016 Elio Rodarte E11.9 TYPE 2 DIABETES MELLITUS WITHOUT COMPLIC 09/08/2016 Elio Rodarte G47.33 OBSTRUCTIVE SLEEP APNEA (ADULT) (PEDIATR 09/08/2016 Elio Rodarte I10 ESSENTIAL (PRIMARY) HYPERTENSION 09/08/2016 Elio Rodarte J45.998 OTHER ASTHMA 09/08/2016 Elio Rodarte Z68.35 BODY MASS INDEX (BMI) 35.0-35.9, ADULT 10/01/2016 Elio Rodarte E66.9 OBESITY, UNSPECIFIED 10/01/2016 Elio Rodarte 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 10/01/2016 Elio Rodarte E88.81 METABOLIC SYNDROME 10/01/2016 Elio Rodarte F41.1 GENERALIZED ANXIETY DISORDER 10/01/2016 Elio Rodarte G40.909 EPILEPSY, UNSP, NOT INTRACTABLE, WITHOUT 10/01/2016 Elio Rodarte G47.30 SLEEP APNEA, UNSPECIFIED 10/01/2016 Elio Rodarte I10 ESSENTIAL (PRIMARY) HYPERTENSION 10/01/2016 Elio Rodarte J45.909 UNSPECIFIED ASTHMA, UNCOMPLICATED 10/01/2016 Elio Rodarte K21.9 GASTRO-ESOPHAGEAL REFLUX DISEASE WITHOUT 10/01/2016 Elio Rodarte K31.84 GASTROPARESIS 10/01/2016 Elio Rodarte M19.90 UNSPECIFIED OSTEOARTHRITIS, UNSPECIFIED 10/01/2016 Elio Rodarte Z68.38 BODY MASS INDEX (BMI) 38.0-38.9, ADULT 10/01/2016 Elio Rodarte E11.9 TYPE 2 DIABETES MELLITUS WITHOUT COMPLIC 10/01/2016 Elio Rodarte G47.33 OBSTRUCTIVE SLEEP APNEA (ADULT) (PEDIATR 10/01/2016 Elio Rodarte I10 ESSENTIAL (PRIMARY) HYPERTENSION 10/01/2016 Elio Rodarte J45.998 OTHER ASTHMA 10/01/2016 Elio Rodarte Z68.37 BODY MASS INDEX (BMI) 37.0-37.9, ADULT 10/01/2016 Elio Rodarte E11.9 TYPE 2 DIABETES MELLITUS WITHOUT COMPLIC 10/01/2016 Elio Rodarte G47.33 OBSTRUCTIVE SLEEP APNEA (ADULT) (PEDIATR 10/01/2016 Elio Rodarte I10 ESSENTIAL (PRIMARY) HYPERTENSION 10/01/2016 Elio Rodarte J45.998 OTHER ASTHMA 10/01/2016 Elio Rodarte Z68.37 BODY MASS INDEX (BMI) 37.0-37.9, ADULT 10/01/2016 Elio Rodarte E11.9 TYPE 2 DIABETES MELLITUS WITHOUT COMPLIC 10/01/2016 Elio Rodarte G47.33 OBSTRUCTIVE SLEEP APNEA (ADULT) (PEDIATR 10/01/2016 Elio Rodarte I10 ESSENTIAL (PRIMARY) HYPERTENSION 10/01/2016 Elio Rodarte J45.998 OTHER ASTHMA 10/01/2016 Elio Rodarte Z68.37 BODY MASS INDEX (BMI) 37.0-37.9, ADULT 10/01/2016 Elio Rodarte E11.9 TYPE 2 DIABETES MELLITUS WITHOUT COMPLIC 10/01/2016 Elio Rodarte G47.33 OBSTRUCTIVE SLEEP APNEA (ADULT) (PEDIATR 10/01/2016 Elio Rodarte I10 ESSENTIAL (PRIMARY) HYPERTENSION 10/01/2016 Elio Rodarte J45.998 OTHER ASTHMA 10/01/2016 Elio Rodarte Z68.36 BODY MASS INDEX (BMI) 36.0-36.9, ADULT 10/01/2016 Elio Rodarte E11.9 TYPE 2 DIABETES MELLITUS WITHOUT COMPLIC 10/01/2016 Elio Rodarte G47.33 OBSTRUCTIVE SLEEP APNEA (ADULT) (PEDIATR 10/01/2016 Elio Rodarte I10 ESSENTIAL (PRIMARY) HYPERTENSION 10/01/2016 Elio Rodarte J45.998 OTHER ASTHMA 10/01/2016 Elio Rodarte Z68.36 BODY MASS INDEX (BMI) 36.0-36.9, ADULT 10/01/2016 Elio Rodarte E11.9 TYPE 2 DIABETES MELLITUS WITHOUT COMPLIC 10/01/2016 Elio Rodarte G47.33 OBSTRUCTIVE SLEEP APNEA (ADULT) (PEDIATR 10/01/2016 Elio Rodarte I10 ESSENTIAL (PRIMARY) HYPERTENSION 10/01/2016 Elio Rodarte J45.998 OTHER ASTHMA 10/01/2016 Elio Rodarte Z68.36 BODY MASS INDEX (BMI) 36.0-36.9, ADULT 10/01/2016 Elio Rodarte E04.8 OTHER SPECIFIED NONTOXIC GOITER 10/01/2016 Elio Rodarte E07.89 OTHER SPECIFIED DISORDERS OF THYROID 10/01/2016 Elio Rodarte Z68.36 BODY MASS INDEX (BMI) 36.0-36.9, ADULT 10/01/2016 Elio Rodarte E11.9 TYPE 2 DIABETES MELLITUS WITHOUT COMPLIC 10/01/2016 Elio Rodarte G47.33 OBSTRUCTIVE SLEEP APNEA (ADULT) (PEDIATR 10/01/2016 Elio Rodarte I10 ESSENTIAL (PRIMARY) HYPERTENSION 10/01/2016 Elio Rodarte J45.998 OTHER ASTHMA 10/01/2016 Elio Rodarte Z68.36 BODY MASS INDEX (BMI) 36.0-36.9, ADULT 10/01/2016 Elio Rodarte E11.9 TYPE 2 DIABETES MELLITUS WITHOUT COMPLIC 10/01/2016 Elio Rodarte G47.33 OBSTRUCTIVE SLEEP APNEA (ADULT) (PEDIATR 10/01/2016 Elio Rodarte I10 ESSENTIAL (PRIMARY) HYPERTENSION 10/01/2016 Elio Rodarte J45.998 OTHER ASTHMA 10/01/2016 Elio Rodarte Z68.35 BODY MASS INDEX (BMI) 35.0-35.9, ADULT 10/08/2016 Elio Rodarte E11.9 TYPE 2 DIABETES MELLITUS WITHOUT COMPLIC 10/08/2016 Elio Rodarte G47.33 OBSTRUCTIVE SLEEP APNEA (ADULT) (PEDIATR 10/08/2016 Elio Rodarte I10 ESSENTIAL (PRIMARY) HYPERTENSION 10/08/2016 Elio Rodarte J45.998 OTHER ASTHMA 10/08/2016 Elio Rodarte Z68.34 BODY MASS INDEX (BMI) 34.0-34.9, ADULT 10/10/2016 Elio Rodarte E11.9 TYPE 2 DIABETES MELLITUS WITHOUT COMPLIC 10/10/2016 Elio Rodarte G47.33 OBSTRUCTIVE SLEEP APNEA (ADULT) (PEDIATR 10/10/2016 Elio Rodarte I10 ESSENTIAL (PRIMARY) HYPERTENSION 10/10/2016 Elio Rodarte J45.998 OTHER ASTHMA 10/10/2016 Elio Rodarte Z68.34 BODY MASS INDEX (BMI) 34.0-34.9, ADULT 10/15/2016 Elio Rodarte E66.9 OBESITY, UNSPECIFIED 10/15/2016 Elio Rodarte 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 10/15/2016 Elio Rodarte E88.81 METABOLIC SYNDROME 10/15/2016 Elio Rodarte F41.1 GENERALIZED ANXIETY DISORDER 10/15/2016 Elio Rodarte G40.909 EPILEPSY, UNSP, NOT INTRACTABLE, WITHOUT 10/15/2016 Elio Rodarte G47.30 SLEEP APNEA, UNSPECIFIED 10/15/2016 Elio Rodarte I10 ESSENTIAL (PRIMARY) HYPERTENSION 10/15/2016 Elio Rodarte J45.909 UNSPECIFIED ASTHMA, UNCOMPLICATED 10/15/2016 Elio Rodarte K21.9 GASTRO-ESOPHAGEAL REFLUX DISEASE WITHOUT 10/15/2016 Elio Rodarte K31.84 GASTROPARESIS 10/15/2016 Elio Rodarte M19.90 UNSPECIFIED OSTEOARTHRITIS, UNSPECIFIED 10/15/2016 Eilo Rodarte Z68.38 BODY MASS INDEX (BMI) 38.0-38.9, ADULT 10/15/2016 Elio Rodarte E11.9 TYPE 2 DIABETES MELLITUS WITHOUT COMPLIC 10/15/2016 Elio Rodarte G47.33 OBSTRUCTIVE SLEEP APNEA (ADULT) (PEDIATR 10/15/2016 Elio Rodarte I10 ESSENTIAL (PRIMARY) HYPERTENSION 10/15/2016 Eloi Rodarte J45.998 OTHER ASTHMA 10/15/2016 Elio Rodarte Z68.37 BODY MASS INDEX (BMI) 37.0-37.9, ADULT 10/15/2016 Elio Rodarte E11.9 TYPE 2 DIABETES MELLITUS WITHOUT COMPLIC 10/15/2016 Elio Rodarte G47.33 OBSTRUCTIVE SLEEP APNEA (ADULT) (PEDIATR 10/15/2016 Elio Rodarte I10 ESSENTIAL (PRIMARY) HYPERTENSION 10/15/2016 Elio Rodarte J45.998 OTHER ASTHMA 10/15/2016 Elio Rodarte Z68.37 BODY MASS INDEX (BMI) 37.0-37.9, ADULT 10/15/2016 Elio Rodarte E11.9 TYPE 2 DIABETES MELLITUS WITHOUT COMPLIC 10/15/2016 Elio Rodarte G47.33 OBSTRUCTIVE SLEEP APNEA (ADULT) (PEDIATR 10/15/2016 Elio Rodarte I10 ESSENTIAL (PRIMARY) HYPERTENSION 10/15/2016 Elio Rodarte J45.998 OTHER ASTHMA 10/15/2016 Elio Rodarte Z68.37 BODY MASS INDEX (BMI) 37.0-37.9, ADULT 10/15/2016 Elio Rodarte E11.9 TYPE 2 DIABETES MELLITUS WITHOUT COMPLIC 10/15/2016 Elio Rodarte G47.33 OBSTRUCTIVE SLEEP APNEA (ADULT) (PEDIATR 10/15/2016 Elio Rodarte I10 ESSENTIAL (PRIMARY) HYPERTENSION 10/15/2016 Elio Rodarte J45.998 OTHER ASTHMA 10/15/2016 Elio Rodarte Z68.36 BODY MASS INDEX (BMI) 36.0-36.9, ADULT 10/15/2016 Elio Rodarte E11.9 TYPE 2 DIABETES MELLITUS WITHOUT COMPLIC 10/15/2016 Elio Rodarte G47.33 OBSTRUCTIVE SLEEP APNEA (ADULT) (PEDIATR 10/15/2016 Elio Rodarte I10 ESSENTIAL (PRIMARY) HYPERTENSION 10/15/2016 Elio Rodarte J45.998 OTHER ASTHMA 10/15/2016 Elio Rodarte Z68.36 BODY MASS INDEX (BMI) 36.0-36.9, ADULT 10/15/2016 Elio Rodarte E11.9 TYPE 2 DIABETES MELLITUS WITHOUT COMPLIC 10/15/2016 Elio Rodarte G47.33 OBSTRUCTIVE SLEEP APNEA (ADULT) (PEDIATR 10/15/2016 Elio Rodarte I10 ESSENTIAL (PRIMARY) HYPERTENSION 10/15/2016 Elio Rodarte J45.998 OTHER ASTHMA 10/15/2016 Elio Rodarte Z68.36 BODY MASS INDEX (BMI) 36.0-36.9, ADULT 10/15/2016 Elio Rodarte E04.8 OTHER SPECIFIED NONTOXIC GOITER 10/15/2016 Elio Rodarte E07.89 OTHER SPECIFIED DISORDERS OF THYROID 10/15/2016 Elio Rodarte Z68.36 BODY MASS INDEX (BMI) 36.0-36.9, ADULT 10/15/2016 Elio Rodarte E11.9 TYPE 2 DIABETES MELLITUS WITHOUT COMPLIC 10/15/2016 Elio Rodarte G47.33 OBSTRUCTIVE SLEEP APNEA (ADULT) (PEDIATR 10/15/2016 Elio Rodarte I10 ESSENTIAL (PRIMARY) HYPERTENSION 10/15/2016 Elio Rodarte J45.998 OTHER ASTHMA 10/15/2016 Elio Rodarte Z68.36 BODY MASS INDEX (BMI) 36.0-36.9, ADULT 10/15/2016 Elio Rodarte E11.9 TYPE 2 DIABETES MELLITUS WITHOUT COMPLIC 10/15/2016 Elio Rodarte G47.33 OBSTRUCTIVE SLEEP APNEA (ADULT) (PEDIATR 10/15/2016 Elio Rodarte I10 ESSENTIAL (PRIMARY) HYPERTENSION 10/15/2016 Elio Rodarte J45.998 OTHER ASTHMA 10/15/2016 Elio Rodarte Z68.35 BODY MASS INDEX (BMI) 35.0-35.9, ADULT 10/15/2016 Elio Rodarte E11.9 TYPE 2 DIABETES MELLITUS WITHOUT COMPLIC 10/15/2016 Elio Rodarte G47.33 OBSTRUCTIVE SLEEP APNEA (ADULT) (PEDIATR 10/15/2016 Elio Rodarte I10 ESSENTIAL (PRIMARY) HYPERTENSION 10/15/2016 Elio Rodarte J45.998 OTHER ASTHMA 10/15/2016 Elio Rodarte Z68.34 BODY MASS INDEX (BMI) 34.0-34.9, ADULT 10/24/2016 Elio Rodarte E11.9 TYPE 2 DIABETES MELLITUS WITHOUT COMPLIC 10/24/2016 Elio Rodarte G47.33 OBSTRUCTIVE SLEEP APNEA (ADULT) (PEDIATR 10/24/2016 Elio Rodarte I10 ESSENTIAL (PRIMARY) HYPERTENSION 10/24/2016 Elio Rodarte J45.998 OTHER ASTHMA 10/24/2016 Elio Rodarte Z68.34 BODY MASS INDEX (BMI) 34.0-34.9, ADULT 10/25/2016 Elio Rodarte E11.9 TYPE 2 DIABETES MELLITUS WITHOUT COMPLIC 10/25/2016 Elio Rodarte G47.33 OBSTRUCTIVE SLEEP APNEA (ADULT) (PEDIATR 10/25/2016 Elio Rodarte I10 ESSENTIAL (PRIMARY) HYPERTENSION 10/25/2016 Elio Rodarte J45.998 OTHER ASTHMA 10/25/2016 Elio Rodarte Z68.34 BODY MASS INDEX (BMI) 34.0-34.9, ADULT 10/30/2016 Elio Rodarte E11.9 TYPE 2 DIABETES MELLITUS WITHOUT COMPLIC 10/30/2016 Elio Rodarte G47.33 OBSTRUCTIVE SLEEP APNEA (ADULT) (PEDIATR 10/30/2016 Elio Rodarte I10 ESSENTIAL (PRIMARY) HYPERTENSION 10/30/2016 Elio Rodarte J45.998 OTHER ASTHMA 10/30/2016 Elio Rodarte Z68.34 BODY MASS INDEX (BMI) 34.0-34.9, ADULT 10/30/2016 Elio Rodarte E11.9 TYPE 2 DIABETES MELLITUS WITHOUT COMPLIC 10/30/2016 Elio Rodarte G47.33 OBSTRUCTIVE SLEEP APNEA (ADULT) (PEDIATR 10/30/2016 Elio Rodarte I10 ESSENTIAL (PRIMARY) HYPERTENSION 10/30/2016 Elio Rodarte J45.998 OTHER ASTHMA 10/30/2016 Elio Rodarte Z68.34 BODY MASS INDEX (BMI) 34.0-34.9, ADULT 11/07/2016 Elio Rodarte E11.9 TYPE 2 DIABETES MELLITUS WITHOUT COMPLIC 11/07/2016 Elio Rodarte G47.33 OBSTRUCTIVE SLEEP APNEA (ADULT) (PEDIATR 11/07/2016 Elio Rodarte I10 ESSENTIAL (PRIMARY) HYPERTENSION 11/07/2016 Elio Rodarte J45.998 OTHER ASTHMA 11/07/2016 Elio Rodarte Z68.34 BODY MASS INDEX (BMI) 34.0-34.9, ADULT 11/19/2016 Elio Rodarte E11.9 TYPE 2 DIABETES MELLITUS WITHOUT COMPLIC 11/19/2016 Elio Rodarte G47.33 OBSTRUCTIVE SLEEP APNEA (ADULT) (PEDIATR 11/19/2016 Elio Rodarte I10 ESSENTIAL (PRIMARY) HYPERTENSION 11/19/2016 Elio Rodarte J45.998 OTHER ASTHMA 11/19/2016 Elio Rodarte Z68.34 BODY MASS INDEX (BMI) 34.0-34.9, ADULT Procedures Code Description Performed By Performed On DZT599 T4, FREE 2015 DNP261 TSH 11/25/2015 Results Test Result Range CALCITONIN - 04/26/16 10:21 CALCITONIN XXX Encounters ACCT No. Visit Date/Time Discharge Status Pt. Type Provider Facility Loc./Unit Complaint [id number] 11/22/2015 10:40:00 2015 13:26:00 DIS Emergency Aries Maloney [facility] COL.ER [id number] 08/15/2015 10:15:00 2014 23:59:59 CLS Outpatient LLOYD MALLOY [facility] LIGHT VCL INT LLOYD [id number] 07/11/2015 10:27:00 2014 23:59:59 CLS Outpatient Alo Villa [facility].RAD BRIAN [id number] 05/17/2014 16:11:00 2013 18:12:00 DIS Emergency Ronan Wallace [facility] COL.ER [id number] 10/10/2013 09:06:00 2013 11:55:00 DIS Emergency [id number] 05/05/2013 17:47:00 2012 20:12:00 DIS Emergency [id number] 10/29/2016 13:59:00 PEN Preadmit Elio Rodarte Román [facility] LIGHT [place]OD[place] [id number] 10/01/2016 13:20:00 ACT Outpatient Elio Rodarte Román [facility] LIGHT [place] [id number] 07/02/2016 14:30:00 ACT Outpatient Elio Rodarte Román [facility] LIGHT [place] [id number] 05/28/2016 14:30:00 ACT Outpatient Elio Rodarte Román [facility] LIGHT [place] [id number] 04/26/2016 09:46:00 ACT Outpatient RodarteElio Román [facility] COL.RAD /LAB [id number] 04/23/2016 15:20:00 ACT Outpatient RodarteElio Román [facility] LIGHT [place] [id number] 04/02/2016 15:00:00 ACT Outpatient Elio Rodarte Román [facility] LIGHT [place] [id number] 01/30/2016 13:50:00 ACT Outpatient RodarteElio Román [facility] LIGHT [place] [id number] 01/02/2016 14:25:00 ACT Outpatient Elio Rodarte Román [facility] LIGHT [place] [id number] 11/21/2015 14:30:00 ACT Outpatient RodarteElio Román [facility] LIGHT [place] [id number] 10/24/2015 16:00:00 ACT Outpatient Elio Rodarte Román [facility] LIGHT [place] [id number] 10/03/2015 14:45:00 ACT Outpatient Elio Rodarte Román [facility] [place]IGHT [place] [id number] 08/31/2015 11:02:00 ACT Outpatient RodarteElio Román [facility] LIGHT VCL PSY INT JANNETH [id number] 08/29/2015 13:30:00 ACT Outpatient RodarteElio Román [facility] VIRAL RODARTE [id number] 08/28/2015 16:10:00 ACT Outpatient Elio Rodarte [facility] APPT MICHELL
[2017-01-06 10:12] LABS: ANION GAP 14 MEQ/L (5-15); BUN/CREATININE RATIO 20 RATIO (6-26); CALCIUM 9.5 MG/DL (8.4-10.2); CHLORIDE 103 MEQ/L (98-107); CO2 - CARBON DIOXIDE 31 MEQ/L (22-30); CREATININE 0.8 MG/DL (0.7-1.2); GLOMERULAR FILTRATION RATE 76; GLUCOSE 105 MG/DL (65-110); SODIUM 148 MEQ/L (134-144)
[2017-01-06] MEDS ORDERED: LIDOCAINE 1% (10mg/ml) 2ml SDV INJ ONE (10:45)
--- NOTE | 2017-01-06 11:04 | ANESPREOP ---
Anesthesia Record Date and Time DATE: 01/06/17 TIME: 10:59 Proposed Surgical Procedure OPEN LATERAL RELEASE OF LT KNEE Allergies: Coded Allergies: Metronidazole HCl (Verified Allergy, Unknown, VOMITTING, 01/06/17) metoclopramide (Verified Allergy, Unknown, 01/06/17) PER H&P DATED 01/03/15 metronidazole (Verified Allergy, Unknown, VOMITTING, 01/06/17) procaine (Verified Allergy, Unknown, 01/06/17) INJECTIONS IN SPINE, AT DENTIST OFFICE CAUSED FLUSHED CHEEKS AND RED FACE PER H&P DATED 01/03/15 lidocaine (Verified Adverse Reaction, Unknown, REDNESS CHEEKS AND PUFFY, ) Uncoded Allergies: "JETT" DRUGS (Allergy, Unknown, PUFFY REDNESS ON CHEEKS, 05/08/16) MOLD (Allergy, Unknown, THROAT SWELLS, 05/08/16) Ht/Wt/BMI Height: 5 ' 2.00 " Weight: 86.800 kg BMI: 35.0 kg/m2 Vital Signs Date Time Temp Pulse Resp B/P Pulse Ox O2 Delivery O2 Flow Rate FiO2 01/06/17 09:52 98.0 81 16 120/64 97 Room Air Medications Inpatient Medications Current Medications Medications (Trade) Dose Ordered Sig/Nelly Start Time Stop Time Status Last Admin Dose Admin Lactated Ringer's (Lactated Ringers) 1,000 ml @ 50 mls/hr Q20H 01/06/17 07:00 01/06/17 10:45 50 MLS/HR Albuterol Sulfate (Albuterol Sulfate Hfa) 8.5 Gm Hfa.aer.ad, 2 PUFF INH Q4HPRN, (Reported) Last Taken: on 12/23/16 Buspirone HCl (Buspirone HCl) 15 Mg Tablet, 1 TAB PO BID, (Reported) Last Taken: on 01/05/17 2100 Cetirizine HCl (Cetirizine HCl) 10 Mg Tablet, 1 TAB PO DAILY, (Reported) Last Taken: on 01/06/17 0630 Diphenhydramine HCl (Diphenhydramine HCl) 25 Mg Tablet, 1 TAB PO Q6H PRN for HEADACHE, (Reported) takes with tizanidine for migraines Last Taken: on 12/06/16 Esomeprazole Magnesium (Nexium) 40 Mg Capsule.dr, 1 CAP PO BID, (Reported) Last Taken: on 01/05/172099 Fluticasone/Salmeterol (Advair 250-50 Diskus) 1 Disk W/Dev Inhaler, 1 PUFF ORAL INH RTBID, (Reported) Last Taken: on 01/06/1730 Furosemide (Furosemide) 20 Mg Tablet, 20 MG PO BID, (Reported) Last Taken: on 01/05/172099 Hypromellose (Systane Gel) 10 Gm Gel..gram., 1 DOSE HS, (Reported) Last Taken: on 01/04/172099 L.acidoph & Paracasei,B.lactis (Probiotic) 1 Each Capsule, 1 CAP PO WS, (Reported) Last Taken: on 12/30/16 Lamotrigine (Lamictal Xr) 300 Mg Tab.er.24, 300 MG PO BID, (Reported) Last Taken: on 01/06/17629 Linaclotide (Linzess) 290 Mcg Capsule, 1 CAP PO DAILY, (Reported) Last Taken: on 01/05/171199 Magnesium Oxide (Magnesium) 400 Mg Capsule, 400 MG PO DAILY, (Reported) Last Taken: on 01/05/172099 Metformin HCl (Metformin HCl) 1,000 Mg Tablet, 1 TAB PO BIDWM, (Reported) Take one tablet, by mouth, twice daily with meals Last Taken: on 01/05/172099 Naproxen Sodium (Aleve) 220 Mg Capsule, 220 MG PO BIDWM PRN for PAIN, (Reported) Last Taken: on 12/30/16 Polyethylene Glycol 3350 (Healthylax) 17 Gm Powd.pack, 17 GM PO DAILY Last Taken: on Unknown Date & Time Potassium Chloride (Potassium Chloride) 20 Meq Tab.er.prt, 20 MEQ PO DAILY, (Reported) Last Taken: on 01/05/172099 Propylene Glycol/Peg 400 (Systane 0.3-0.4% Eye Drops) 15 Ml Drops, 1 DROP BOTH EYES BID, (Reported) Last Taken: on 01/04/17 Sertraline (Sertraline) 100 Mg Tablet, 1 TAB PO DAILY, (Reported) Last Taken: on 01/05/172099 Sucralfate (Sucralfate) 1 Gm Tablet, 1 TAB PO ACHS, (Reported) Last Taken: on 12/16/16 Tizanidine HCl (Tizanidine HCl) 2 Mg Tablet, 1 TAB PO Q8HPRN, (Reported) takes with benadryl for migraines Last Taken: on 12/06/16 Tramadol Hcl (Tramadol Hcl) 50 Mg Tablet, 50 MG PO QID PRN for PAIN, (Reported) Last Taken: on 11/08/16 Currently on Beta Bobby: No Medical/Surgical History Anesthesia PMH: Reports: *Diabetes, *Dyspnea, *Hypertension (HX ONLY, NOT ON MEDS-ELEVATES CONSIDERABLY WITH PAIN), Anesthesia Reactions (LOSS OF MEMORY FOR A COUPLE OF DAYS), Arthritis ("every joint"), Asthma (triggered by molds), COPD , Hiatal Hernia, Hyperlipidemia, Obesity, Other (history of fatty liver), Reflux (WELL CONTROLLED), Seizures (PARTIAL SYMPTOMATIC EPILEPSY W SIMPLE PARTIAL SEIZURES, UNCONT SHAKING '14), Sleep Apnea (BIPAP) Smoking Status: Former smoker (quit 11 years ago) # of Packs per Day: 1 # of Years: 24 Use Chewing Tobacco?: No Second Hand Exposure: No Substance Use Type: does not use Alcohol Intake: none, other (former. sobre for 11 years) HX of Last Menstrual Period: HYST. Past Surgical History Orthopedic Surgeries: Yes - LG TOE TUMOR; R TKA,LOLA SHOULDER,LOLA KNEE SCOPES;L TKA;REV LT TKA Abdominal Surgeries: Yes - JOEY Genitourinary Surgeries: No Cardiac Surgeries: No Endocrine Surgeries: No Reproductive Surgeries: Yes - C SECTION; HYST; LSO Neurological Surgeries: Yes - LOLA CTR Ear Surgeries: No Nose Surgeries: No Throat Surgeries: No Other Surgeries: Yes - FISTULA X3; COLONOSCOPY, EGD Anesthesia Adverse Reactions: FOUND none Family Hx of Anesthesia Advers: none Hx of Motion Sickness: No Pertinent Findings Laboratory Tests 01/06/17 09:56 EKG Rhythm: Sinus Rhythm Physical Exam Respiratory: Bilat breath sounds equal, Lungs clear Cardiovascular: FOUND Regular rate, rhythm Airway Assessment Mallampati Score: II TMD: 3 Fingerbreadths Neck Extension: Fair Overall Assessment: No Airway Concerns ASA: 3 Plan GA vs. SAB Anesthesia Plan: LMA, GETA Regional: Spinal Discussion Discussed risks/options/alternatives of anesthesia and questions answered. Patient consents. Nursing pain assessment noted. Present: Family Member Attestation Statement Prior to the delivery of any anesthetic medication, I examined the patient, developed the plan, obtained the patient's consent and discussed the risk and benefits of the procedure with the patient/guardian. RUT CESAR CRNA Jan 06, 2017 11:03
[2017-01-06] MEDS ORDERED: FENTANYL 100mcg/2ml INJECTION ONE (11:10)
[2017-01-06] MEDS ORDERED: MIDAZOLAM 2mg/2ml INJECTION ONE (11:11)
[2017-01-06] MEDS ORDERED: PROPOFOL 500mg 50 ML IV ONE ×2 (12:09)
[2017-01-06] MEDS ORDERED: KETAMINE 500mg/10ml INJECTION ONE (12:10)
[2017-01-06] MEDS ORDERED: GENTAMICIN 80 MG/2 ML INJECTION ONE (12:53)
[2017-01-06] MEDS ORDERED: VANCOMYCIN 1 GRAM INJECTION ONE (13:04)
[2017-01-06] MEDS ORDERED: ONDANSETRON 4mg/2ml INJECTION IV PRN ×2 (13:30)
[2017-01-06] MEDS ORDERED: HYDROMORPHONE 2mg/ml INJECTION IV PRN ×2 (13:30→19:00)
[2017-01-06] MEDS ORDERED: INSULIN ASPART 100 UNIT/ML SQ PRN (13:30)
[2017-01-06] MEDS ORDERED: MILK OF MAGNESIA 30 ML SUSP PO PRN (13:30)
[2017-01-06] MEDS ORDERED: ALBUTEROL INH.SOLN. 2.5mg/3ml (0.083%) Neb. AEROSOL ONE ×2 (14:15→14:30)
--- NOTE | 2017-01-06 14:17 | ANESPO ---
Post-Op Note Date 01/06/17 Time: 14:05 Status Pt Participated in Evaluation: Pt participated in person Vital Signs Date Time Temp Pulse Resp B/P Pulse Ox O2 Delivery O2 Flow Rate FiO2 01/06/17 14:10 63 16 125/67 94 Room Air 01/06/17 14:00 97.0 01/06/17 13:50 2.00 Respiratory Function: Airway patent Cardiovascular Function: Regular pulse Mental Status: Alert/oriented Pain Level Intensity: 0 Hydration: Taking po fluids Complications during Recovery None apparent Follow-Up Instructions Instructions Per Surgeon Additional Information pt states she feels some asthmatic tightness in chest- denies dyspnea at this time. Breathing tx ordered. DASHAWN GUPTA CRNA Jan 06, 2017 14:17
--- NOTE | 2017-01-06 14:27 | NUR ---
PACU Pt meets criteria to be tranferred out of PACU. Pt to receive breathing treatment, then will transfer to room 123.
[2017-01-06] MEDS: ALBUTEROL INH.SOLN. 2.5mg/3ml (0.083%) Neb. AEROSOL PRN ×2 (14:28→21:00)
[2017-01-06] MEDS ORDERED: ALBUTEROL INH.SOLN. 2.5 MG/0.5 ML (0.5%) Neb. AEROSOL ONE (14:30)
--- NOTE | 2017-01-06 14:45 | NUR ---
ARRIVAL TO FLOOR PT ARRIVED TO THE FLOOR AT THIS TIME. PT WAS TRANSFERRED FROM THE CART TO THE BED WITH 2 PERSON ASSIST AND SLIDING BOARD. PT ALERT AND ORIENTED X3. POST OP VITAL SIGNS STARTED. WILL CONTINUE TO MONITOR.
[2017-01-06] MEDS ORDERED: TIZANIDINE 4 MG TABLET PO PRN (15:00)
[2017-01-06] MEDS: NORMAL SALINE 1,000 ML IV SCH (15:19)
[2017-01-06] MEDS: TRAMADOL 50 MG TABLET PO PRN (16:21)
[2017-01-06] MEDS: NAPROXEN 220 MG TABLET PO PRN (18:07)
[2017-01-06] MEDS: SUCRALFATE 1 G TABLET PO SCH ×2 (18:07→21:41)
[2017-01-06] MEDS: FUROSEMIDE 20 MG TABLET PO SCH (18:07)
[2017-01-06] MEDS: PANTOPRAZOLE 40 MG TABLET PO SCH (18:08)
[2017-01-06] MEDS: OXYCODONE I.R. 5 MG TABLET PO PRN ×2 (19:00→22:05)
--- NOTE | 2017-01-06 19:01 | NUR ---
PROGRESS NOTE PT ALERT AND ORIENTED X3, VITAL SIGNS STABLE, ON RA. PT RATES PAIN A 10/10 AT THIS TIME. ROXICODONE 10MG PO ADMINISTERED AT THIS TIME. THIS RN RECEIVED ORDERS FOR ROXICODONE AND DILAUDID FROM QUIANA KAUFFMAN PRIOR TO SHIFT CHANGE FOR PT'S INCREASED PAIN. PT HAS USED THE BED GAO SINCE ARRIVING TO THE FLOOR DUE TO DECREASED SENSATION IN LOWER EXTREMITIES. PT HAS TOLERATED A REGULAR DIET. FAMILY PRESENT IN ROOM. WILL CONTINUE TO MONITOR.
[2017-01-06] MEDS: CEFAZOLIN 2 G in NORMAL SALINE 100 ML IV SCH (20:55)
[2017-01-06] MEDS ORDERED: ENOXAPARIN 40 MG/0.4 ML INJECTION SQ ONE (21:00)
[2017-01-06] MEDS ORDERED: ASPIRIN *EC* 325mg TABLET PO SCH (21:00)
[2017-01-06] MEDS: FLUTICASONE/SALMETEROL 250/50 DISK INHALER ORAL INH SCH (21:03)
--- NOTE | 2017-01-06 21:08 | OPNOTEF ---
DATE OF SURGERY 01/06/2017 SURGEON Joss Cardoza MD TRANSPORTATION OPERATIONS MANAGER Fernandez Orellana PA-C PREOPERATIVE DIAGNOSIS Painful popping status post left total knee revision. POSTOPERATIVE DIAGNOSIS Painful popping status post left total knee revision. OPERATION Open lateral release, left knee, with excision of scar from the undersurface of the patellar tendon. CLINICAL FINDINGS The patient had presented with popping and jumping of the patella postop left total knee revision. It did not start immediately after surgery but came on after a period of time. X-rays remained relatively normal, showing a satisfactory position of the implants. OPERATIVE FINDINGS Even with the patient under anesthesia there was a clinical jumping or shifting of the patella as it went from full flexion to extension. At surgery the undersurface of the patellar tendon was scarred and there was a ridge-like area that would play over or pop over the leading edge of the polyethylene implant on the tibial side. DESCRIPTION OF PROCEDURE With the patient in supine position under satisfactory spinal anesthesia, the left knee was prepped and draped sterilely. She received Kefzol preoperatively. A tourniquet was inflated and an incision was made laterally over the knee. The incision was deepened down through subcutaneous tissue, checking as we approached the capsule to make sure there was no other extrinsic cause for the popping. The capsule and lateral synovium were excised doing a lateral release and this did not eliminate any of the popping. Further inspection revealed a ridge of scar tissue on the undersurface of the patellar tendon. This ridge of scar tissue was excised from lateral to medial and once this was done the clicking or popping was totally resolved. The IT band was checked to make sure there was no tightness there and again there was no unusual pressure at that site. Once the procedure was felt to be complete we let the tourniquet down. Hemostasis was obtained with cautery. The area was thoroughly irrigated with antibiotic solution and a gram of vancomycin powder was placed into the knee joint. The wound was then closed using closure of the subcutaneous tissues and then skin. Sterile dressing was applied. The patient tolerated this procedure well and returned to the recovery room in good condition. MAEVE
[2017-01-06] MEDS: HYPROMELLOSE BOTH EYES SCH (22:00)
[2017-01-06] MEDS: DiphenhydrAMINE 25 MG CAPSULE PO PRN (23:07)
[2017-01-07] VITALS (10 sets, daily range): BP systolic 110–134; BP diastolic 67–86; PULSE 72–90; RESP 16–19; TEMP 96.7–99.8; O2SAT 92–96
--- NOTE | 2017-01-07 03:15 | NUR ---
Chart Check 24 hour chart check completed
[2017-01-07] MEDS: OXYCODONE I.R. 5 MG TABLET PO PRN ×5 (04:10→21:56)
[2017-01-07] MEDS: CEFAZOLIN 2 G in NORMAL SALINE 100 ML IV SCH (04:10)
--- NOTE | 2017-01-07 04:25 | NUR ---
STATUS PATIENT ALERT AND ORIENTEDX3. PATIENT C/O PAIN AT LT KNEE AND NECK .PATIENT RATED 5-6/10.PRN ROXICODONE WAS ADMINISTRATED.PATIENT C/ O SKIN ITCHING. PRN BENADRYL WAS GIVEN . PATIENT SCRATCHED AND BROKE HER SKIN AT BACK AREA.EDUCATED PATIENT TO STOP AND NEED TO PREVENT TO GET INFECTION AT THAT AREA. PATIENT AMBULATED WITH WALKER BY ONE STANDBY ASSIST. ON ROOM AIR. DENIES CHEST PAIN,SOA,OR N/V. ICE PAD APPLIED TO LT KNEE.BED ALARM ON. CONTINUE TO MONITOR.
[2017-01-07] MEDS: NORMAL SALINE 1,000 ML IV SCH ×2 (05:02→17:43)
[2017-01-07] MEDS: PANTOPRAZOLE 40 MG TABLET PO SCH ×2 (05:57→17:43)
[2017-01-07] MEDS: SUCRALFATE 1 G TABLET PO SCH ×4 (05:57→20:25)
[2017-01-07] MEDS: TRAMADOL 50 MG TABLET PO PRN ×2 (06:30→20:06)
[2017-01-07] MEDS ORDERED: OXYC5TAB84 PO (07:10)
[2017-01-07] MEDS ORDERED: ASPI-1115 PO (07:13)
[2017-01-07] MEDS ORDERED: DiphenhydrAMINE 50 MG/ML INJECTION IV ONE (07:30)
[2017-01-07] MEDS: LINACLOTIDE 145 MCG CAPSULE PO SCH (07:37)
[2017-01-07 07:54] LABS: ANION GAP 10 MEQ/L (5-15); BUN/CREATININE RATIO 15 RATIO (6-26); CHLORIDE 102 MEQ/L (98-107); CO2 - CARBON DIOXIDE 32 MEQ/L (22-30); CREATININE 0.8 MG/DL (0.7-1.2); GLOMERULAR FILTRATION RATE 76; GLUCOSE 95 MG/DL (65-110); SODIUM 144 MEQ/L (134-144)
[2017-01-07] MEDS: CETIRIZINE 10 MG TABLET PO SCH (08:37)
[2017-01-07] MEDS: MAGNESIUM OXIDE 400 MG TABLET PO SCH (08:37)
[2017-01-07] MEDS: SERTRALINE 100 MG TABLET PO SCH (08:37)
--- NOTE | 2017-01-07 08:37 | PDORTHOPN ---
Subjective Date DATE: 01/07/17 TIME: 08:01 Subjective Mrs. Almanzar had 10/10 pain yesterday. She was switched to Oxycodone and her pain is now a 4/10, but is due for a dose. She has global itching, which Benadryl has helped. I have just given an order for IV Benadryl as well. She did not get up yesterday due to spinal still working. She has multiple complaints about when her medications are administered. I've agreed to switch her medications to her more normal regimen. Objective Vital Signs Vital signs Vital Signs 01/06/17 01/06/17 01/06/17 01/07/17 20:42 20:42 20:52 00:02 Temp 97.2 Pulse 84 85 89 Resp 14 18 B/P 125/75 Pulse Ox 95 92 O2 Delivery Room Air 01/07/17 01/07/17 03:56 07:50 Temp 96.7 98.4 Pulse 72 83 Resp 18 19 B/P 119/75 129/74 Pulse Ox 95 94 O2 Delivery Room Air Room Air Height (Feet): 5 Height (Inches): 2.00 Weight (Kilograms): 88.800 General General Appearance: Alert, Orientated x 3, Well Developed, No Acute Distress Respiratory (Brief) Respiratory Brief: FOUND: non-labored Cardiovascular (Brief) Cardiac: FOUND: calf easily compressible, calf soft, nontender, pedal pulses intact Capillary Refill: <2 sec Abdomen (Brief) Abdominal Brief: FOUND: non-tender Musculoskeletal (Brief) Knee: FOUND painful ROM Hip: FOUND decreased ROM (rotation), FOUND decreased ROM(flexion) Surgical Site Incision: FOUND: Mepilex dressing intact, no drainage Integumentary (Brief) Integumentary Brief: FOUND dry, FOUND pink, FOUND warm Neurologic (Brief) Neurological Brief: FOUND: extremities w/o deficits, neuro intact Psychiatric (Brief) Psychiatric Brief: FOUND: alert Laboratory Laboratory Laboratory Tests 01/06/17 09:56 01/07/17 07:39 Assessment & Plan Problems: (1) Anxiety Status: Chronic (2) Asthma Status: Chronic (3) Depression Status: Chronic (4) Diabetes Status: Chronic Assessment & Plan: get BMP, assess and see if can restart Metformin. (5) Fibromyalgia Status: Chronic (6) GERD (gastroesophageal reflux disease) Status: Chronic (7) Hypertension Status: Chronic (8) Obesity (BMI 30-39.9) Status: Chronic (9) GISSELLE (obstructive sleep apnea) Status: Chronic (10) Epilepsy (11) Gastroparesis (12) PTSD (post-traumatic stress disorder) (13) COPD (chronic obstructive pulmonary disease) (14) Painful total knee replacement Status: Acute Assessment & Plan: s/p lateral release Dr. Cardoza on 01/06/17 ASA 325 BID mobilize Hospital Course Summary Disclaimer The visit summary below is not to be considered part of the above Progress Note. NATALIO BELLO Jan 07, 2017 08:04
[2017-01-07] MEDS: FUROSEMIDE 20 MG TABLET PO SCH ×2 (08:38→17:43)
[2017-01-07] MEDS: POTASSIUM CHLORIDE 20 MEQ TABLET PO SCH (08:39)
[2017-01-07] MEDS: POLYETHYL.GLYCOL 3350 PACKET 17gm PO SCH (08:39)
--- NOTE | 2017-01-07 08:41 | PNPDOC ---
Subjective Date DATE: 01/07/17 TIME: 08:35 Subjective Long hx of back problems which are now quiote severe and affecting her ability to walk. Had Fx lower thoracic spine in 1999 in a fall out of her truck and then to her lower lumbar spine in 2008 in an acident involving a horse, she does not remember that accident clearly. Has had 2 series of epidurals.. This often affects the L leg. Objective Vital Signs Vital signs Vital Signs Date Time Temp Pulse Resp B/P Pulse Ox O2 Delivery O2 Flow Rate FiO2 01/07/17 08:02 83 19 01/07/17 07:50 98.4 129/74 94 Room Air 01/06/17 13:50 2.00 Height (Feet): 5 Height (Inches): 2.00 Weight (Kilograms): 88.500 Laboratory Laboratory Laboratory Tests 01/06/17 09:56 01/07/17 07:39 Assessment & Plan Problems: (1) Compression fracture Status: Chronic Assessment & Plan: @ levels-thoracic and lumbar. Code Status Full Code Hospital Course Summary Disclaimer The hospital course summary below is not to be considered part of the above Progress Note. DEEPTI FORD MD Jan 07, 2017 08:38
[2017-01-07] MEDS: ENOXAPARIN 40 MG/0.4 ML INJECTION SQ SCH (08:50)
[2017-01-07] MEDS: ALBUTEROL INH.SOLN. 2.5mg/3ml (0.083%) Neb. AEROSOL PRN (09:12)
[2017-01-07] MEDS: FLUTICASONE/SALMETEROL 250/50 DISK INHALER ORAL INH SCH ×2 (10:12→20:38)
--- NOTE | 2017-01-07 10:29 | NUR ---
MIKE GUERRERO SCORE IS 4. Addendum: 01/07/17 at 1029 by JASWANT LOGAN Amended: Links added.
--- NOTE | 2017-01-07 10:44 | NUR ---
CM THIS WORKER VISITED PT IN ROOM, PT'S WAS PRESENT. PT STATED SHE HAS GOOD FAMILY/FRIEND SUPPORT IN [place]. PT AND STATED PLAN OF DISCHARGE IS TO RETURN HOME AND WILL TAKE HER HOME. WILL CONTINUE TO FOLLOW FOR ANY D/C NEEDS. THIS FAMILY WAS GIVEN THIS WORKER'S CONTACT INFORMATION AND ENCOURAGED TO CALL WITH ANY QUESTIONS/NEEDS. Addendum: 01/07/17 at 1047 by JASWANT LOGAN Amended: Links added. Addendum: 01/07/17 at 1428 by JASWANT LOGAN CM VISITED PT IN ROOM, SPOKE WITH PT AND . FAMILY INQUIRED ABOUT GETTING A TWO WHEEL WALKER AFTER PT DISCHARGES. DISCUSSED [facility] PROVIDING FOR PT, PT AND WAS AGREEABLE TO THIS. PT AND OT RECOMMEND HOME WITH HOME HEALTH. THIS WORKER ASKED PT IF SHE WOULD BE AGREEABLE WITH HOME HEALTH. PT STATED SHE HAS CURRENT SERVICES WITH [facility] NEAR [place]. LEFT MESSAGE WITH [facility] AT [phone]. THIS WORKER CALLED STEPHEN AT [facility] AND HE STATED HE HAS A TWO WHEEL WALKER IN STOCK AND TO CONTACT HIM ONCE DETAILS ARE KNOWN.
[2017-01-07] MEDS: DiphenhydrAMINE 25 MG CAPSULE PO PRN (14:07)
--- NOTE | 2017-01-07 15:02 | PDORTHOPN ---
Subjective Date DATE: 01/07/17 TIME: 14:59 Subjective Mrs. Almanzar had 10/10 pain yesterday. She was switched to Oxycodone and her pain is now a 4/10, but is due for a dose. She has global itching, which Benadryl has helped. I have just given an order for IV Benadryl as well. She did not get up yesterday due to spinal still working. She has multiple complaints about when her medications are administered. I've agreed to switch her medications to her more normal regimen. She was up to the BR and walked to the doorway but doesn't feel stable walking more than that. She reports feeling unstable at times when up. Her home situation is not optimal and she will likely be alone a considerable amount. Objective Vital Signs Vital signs Vital Signs 01/07/17 01/07/17 01/07/17 01/07/17 03:56 07:50 08:02 09:13 Temp 96.7 98.4 Pulse 72 83 83 74 Resp 18 19 19 B/P 119/75 129/74 Pulse Ox 95 94 O2 Delivery Room Air Room Air 01/07/17 01/07/17 01/07/17 01/07/17 09:13 09:13 09:13 10:13 Pulse 82 76 Resp 10 Pulse Ox 94 O2 Delivery Room Air 01/07/17 01/07/17 01/07/17 10:13 10:13 11:23 Temp 98.5 Pulse 76 90 Resp 15 18 B/P 110/69 Pulse Ox 96 O2 Delivery Room Air Height (Feet): 5 Height (Inches): 2.00 Weight (Kilograms): 88.500 General General Appearance: Alert, Orientated x 3, Well Developed, No Acute Distress Respiratory (Brief) Respiratory Brief: FOUND: non-labored Cardiovascular (Brief) Cardiac: FOUND: calf easily compressible, calf soft, nontender, pedal pulses intact Capillary Refill: <2 sec Abdomen (Brief) Abdominal Brief: FOUND: non-tender Musculoskeletal (Brief) Knee: FOUND painful ROM Hip: FOUND decreased ROM (rotation), FOUND decreased ROM(flexion) Surgical Site Incision: FOUND: Mepilex dressing intact, no drainage Integumentary (Brief) Integumentary Brief: FOUND dry, FOUND pink, FOUND warm Neurologic (Brief) Neurological Brief: FOUND: extremities w/o deficits, neuro intact Psychiatric (Brief) Psychiatric Brief: FOUND: alert Laboratory Laboratory Laboratory Tests 01/06/17 09:56 01/07/17 07:39 Assessment & Plan Problems: (1) Painful total knee replacement Status: Acute Assessment & Plan: s/p lateral release Dr. Cardoza on 01/06/17 ASA 325 BID and Lovenox / SCDs added for DVT coverage. mobilize. Pt not stable from a mobility status to return home today. Will have PT / OT work with her. CM to help with discharge needs. (2) Anxiety Status: Chronic (3) Asthma Status: Chronic (4) Depression Status: Chronic (5) Diabetes Status: Chronic Assessment & Plan: get BMP, assess and see if can restart Metformin. (6) Fibromyalgia Status: Chronic (7) GERD (gastroesophageal reflux disease) Status: Chronic (8) Hypertension Status: Chronic (9) Obesity (BMI 30-39.9) Status: Chronic (10) GISSELLE (obstructive sleep apnea) Status: Chronic (11) Epilepsy (12) Gastroparesis (13) PTSD (post-traumatic stress disorder) (14) COPD (chronic obstructive pulmonary disease) Hospital Course Summary Disclaimer The visit summary below is not to be considered part of the above Progress Note. KAITLIN CHOWDHURY Jan 07, 2017 15:02
[2017-01-07] MEDS: METFORMIN 1,000 MG TABLET PO SCH (17:43)
--- NOTE | 2017-01-07 18:30 | NUR ---
PROGRESS NOTE PT ALERT AND ORIENTED X3. VITAL SIGNS STABLE, WITH A 99.0 TEMP IN THE AFTERNOON. THE PT HAS HAD ADEQUATE URINE OUTPUT AND NO BOWEL MOVEMENT THIS SHIFT. PT HAS TOLERATED A REGULAR DIET WELL AND HAS HAD NO NAUSEA. THE PT HAS BEEN GIVEN A DOSE OF PRN ROXICODONE 15MG AT THIS TIME AND RATES HER PAIN IN HER A KNEE AT 8/10 AT THIS TIME. PT HAS ALSO BEEN GIVEN SEVERAL PRN DOSES OF BENADRYL FOR ITCHING. NO OTHER CONCERNS NOTED AT THIS TIME. WILL CONTINUE TO MONITOR.
[2017-01-07] MEDS: LAMOTRIGINE 100 MG TABLET PO SCH (20:24)
[2017-01-07] MEDS: HYPROMELLOSE BOTH EYES SCH (20:25)
[2017-01-07] MEDS ORDERED: LAMOTRIGINE 200 MG TABLET PO SCH (21:00)
--- NOTE | 2017-01-07 22:00 | NUR ---
ITCH PT STATES THAT SHE BELIEVES THE ITCHINESS THAT SHE EXPERIENCED DURING DAY SHIFT WAS BECAUSE LIDOCAINE WAS USED TO START HER IV AT HER REQUEST. PT IS ALLERGIC TO LIDOCAINE AND STATES THAT IN THE PAST IT WOULD JUST CAUSE FLUSHING IN HER CHEEKS.
[2017-01-08] VITALS (9 sets, daily range): BP systolic 109–131; BP diastolic 60–85; PULSE 78–96; RESP 16–18; TEMP 96.8–100; O2SAT 90–97
[2017-01-08] MEDS: OXYCODONE I.R. 5 MG TABLET PO PRN ×4 (02:54→17:09)
[2017-01-08] MEDS: NORMAL SALINE 1,000 ML IV SCH (06:10)
[2017-01-08] MEDS: SUCRALFATE 1 G TABLET PO SCH ×4 (06:12→20:49)
[2017-01-08] MEDS: PANTOPRAZOLE 40 MG TABLET PO SCH ×2 (06:12→17:09)
[2017-01-08] MEDS: LINACLOTIDE 145 MCG CAPSULE PO SCH (08:41)
[2017-01-08] MEDS: CETIRIZINE 10 MG TABLET PO SCH (08:42)
[2017-01-08] MEDS: METFORMIN 1,000 MG TABLET PO SCH ×2 (08:42→18:13)
[2017-01-08] MEDS: POTASSIUM CHLORIDE 20 MEQ TABLET PO SCH (08:42)
[2017-01-08] MEDS: MAGNESIUM OXIDE 400 MG TABLET PO SCH (08:42)
[2017-01-08] MEDS: LAMOTRIGINE 100 MG TABLET PO SCH ×2 (08:42→20:49)
[2017-01-08] MEDS: ENOXAPARIN 40 MG/0.4 ML INJECTION SQ SCH (08:43)
[2017-01-08] MEDS: POLYETHYL.GLYCOL 3350 PACKET 17gm PO SCH (08:43)
[2017-01-08] MEDS: SERTRALINE 100 MG TABLET PO SCH (08:43)
[2017-01-08] MEDS: FUROSEMIDE 20 MG TABLET PO SCH ×2 (08:43→17:10)
[2017-01-08] MEDS: FLUTICASONE/SALMETEROL 250/50 DISK INHALER ORAL INH SCH ×2 (09:36→20:03)
[2017-01-08] MEDS: NAPROXEN 220 MG TABLET PO PRN (12:30)
--- NOTE | 2017-01-08 12:34 | NUR ---
CM SPOKE WITH PT, RE: WHAT HER DC PLAN IS. SHE SAID SHE WANTS TO GO TO SNU AT [facility] ([facility]). THIS WORKER EXPLAINED THE BARRIER TO THIS WOULD BE THAT SHE IS IN OUTPT STATUS THEREFORE MEDICARE WOULD NOT COVER A SKILLED STAY. EXPLAINED SHE WOULD NEED TO BE PRIVATE PAY. ADDITIONALLY, THIS WORKER EXPLAINED PT/OT WAS RECOMMENDING HOME WITH HOME HEALTH. EXPLAINED WHAT HOME HEALTH COULD ASSIST WITH. SHE SAID SHE DOES NOT WANT TO RETURN HOME BECAUSE SHE WANTS TO MAKE SURE HER WOUND WILL HEAL. SHE SAID TO COME BACK LATER SHE WILL BE MAKING PHONE CALLS TO INSURANCE. STOPPED BACK BY PT'S ROOM. SHE SAID SHE SPOKE WITH [employer] AND THEY TOLD HER A SKILLED STAY WILL BE COVERED AT [facility]. THIS WORKER EXPLAINED THIS WORKER NEEDS TO CONTACT [facility], AND [facility] WILL INITIATE THE AUTH/ETC IF THEY CAN ACCEPT OR NOT. SHE GAVE PERMISSION FOR THE PORTAL TO BE OPENED TO [facility]. CALLED KERRIE AT [facility]. DISCUSSED THE ABOVE AND PT'S REQUEST. SHE SAID THEY DO NOT HAVE AN OPENING TODAY AND SHE WILL NEED TO FOLLOW UP TO SEE IF THEY COULD ACCEPT PT OR NOT WHEN THEY DO HAVE AN OPENING. PORTAL WAS OPENED.
--- NOTE | 2017-01-08 13:48 | NUR ---
CM SPOKE AGAIN WITH PT. ADVISED HER THAT THIS WORKER SHOULD CONTACT MORE FACILITIES IN CASE [facility] IS UNABLE TO ACCEPT. REVIEWED THE POSSIBILITY OF PRIVATE PAY HERE IF INSURANCE DETERMINES STAY IS NOT MED NECESSARY ANY LONGER. SHE SAID TO TRY [facility].
[2017-01-08] MEDS: ALBUTEROL INH.SOLN. 2.5mg/3ml (0.083%) Neb. AEROSOL PRN ×2 (15:22→20:04)
--- NOTE | 2017-01-08 16:41 | NUR ---
CM DISCHARGE PLANNING THIS WORKER HAS SPOKEN WITH PT AT LENGTH REGARDING DC PLANNING. THIS WORKER EXPLAINED TO HER THAT PER KERRIE AT [facility], KERRIE IS WAITING TO HEAR BACK FROM MEDICAID TO SEE IF MEDICAID WILL AUTHORIZE A SKILLED STAY. PER KERRIE, SHE WILL HAVE A BED OPENED TOMORROW () SO IF MEDICAID APPROVES, TRANSFER COULD HAPPEN TOMORROW. THIS WORKER ALSO EXPLAINED THAT [facility] HAS ALSO BEEN CONTACTED (THIS WORKER HAD CALLED PENG AT [place], FAXED RECORDS, AND IT WILL BE REVIEWED TOMORROW). THIS WORKER EXPLAINED SEVERAL TIMES TO PT THAT HER STAY MIGHT BECOME DEEMED NOT MEDICALLY NECESSARY AND THEN IT WOULD BE PRIVATE PAY. PT ASKED SEVERAL TIMES IF SHE WOULD BE DC'D TODAY AND THAT SHE DID NOT FEEL SHE SHOULD BE DC'D TODAY. THIS WORKER EXPLAINED TO HER THAT SHE WILL NOT BE DC'D TODAY. SHE THEN ASKED SEVERAL TIMES "SO THAT MEANS IT'S OK TO STAY?" EACH TIME, THIS WORKER REITERATED THAT SHE WILL NOT BE DC'D UNTIL THERE IS A PLAN (I.E. [facility] OR HOME HEALTH) AND THAT THIS WORKER WILL UPDATE HER IF IT APPEARS THAT THE STAY WILL NO LONGER BE CONSIDERED MEDICALLY NECESSARY. THIS WORKER REVIEWED OTHER VIABLE DC OPTIONS WITH HER, INCLUDING RETURNING HOME WITH HOME HEALTH AND RESUMING HER SERVICES THROUGH [facility]; RETURNING HOME WITH HOME HEALTH AND FAMILY AND/OR FRIENDS ASSISTING HER; OR RETURNING HOME WITH HOME HEALTH AND PAYING PRIVATELY FOR INHOME SERVICES. EACH OPTION SHE DECLINED.
[2017-01-08] MEDS: HYPROMELLOSE BOTH EYES SCH (20:48)
--- NOTE | 2017-01-08 21:00 | NUR ---
EYE DROPS PT STATES THAT SHE ONLY USES THE [facility] IN THE AM. ONLY USES [facility] AT BEDTIME.
[2017-01-09] MEDS: OXYCODONE I.R. 5 MG TABLET PO PRN ×2 (00:23→04:14)
[2017-01-09 03:48] VITALS: BP 150/88; PULSE 83; RESP 20; TEMP 99.2; O2SAT 97
--- NOTE | 2017-01-09 04:30 | NUR ---
BOWEL MOVEMENT PT LAST HAD A BOWEL MOVEMENT ON December, PT STATES THAT HER STOMACH HURTS. PT HAS ACTIVE BOWEL SOUNDS IN EACH QUADRANT AND IS PASSING FLATUS. MILK OF MAGNESIA WAS GIVEN EARLY IN THE SHIFT TO FACILITATE A BM. PT AMBULATED ONCE ON THIS SHIFT. PT ALSO TAKES MIRALAX DAILY WHILE IN THE HOSPITAL. THIS RN HAS OFFERED TO TAKE HER FOR ANOTHER WALK TO ENCOURAGE MOVEMENT. PT HAS REFUSED THIS WELL. WILL CONTINUE TO MONITOR.
[2017-01-09] MEDS: SUCRALFATE 1 G TABLET PO SCH ×2 (06:25→12:53)
[2017-01-09] MEDS: PANTOPRAZOLE 40 MG TABLET PO SCH (06:25)
[2017-01-09 08:00] VITALS: BP 117/68; PULSE 86; RESP 18; TEMP 98.9; O2SAT 93
--- NOTE | 2017-01-09 08:01 | PDORTHOPN ---
Subjective Date DATE: 01/09/17 TIME: 08:00 Subjective We are waiting on potential placement at [facility] for Mrs. Almanzar. Pain has been tolerable. She has walked to the nursing station and in the [place]. Objective Vital Signs Vital signs Vital Signs 01/08/17 01/08/17 01/08/17 01/08/17 20:04 20:04 20:05 20:14 Temp 96.8 Pulse 76 79 78 Resp 20 17 B/P 109/67 Pulse Ox 93 O2 Delivery Room Air 01/08/17 01/08/17 01/09/17 21:03 23:44 03:48 Temp 99.6 99.2 Pulse 78 93 83 Resp 18 18 20 B/P 127/82 150/88 Pulse Ox 93 97 O2 Delivery Room Air Room Air Height (Feet): 5 Height (Inches): 2.00 Weight (Kilograms): 91.700 General General Appearance: Alert, Orientated x 3, Well Developed, No Acute Distress Respiratory (Brief) Respiratory Brief: FOUND: non-labored Cardiovascular (Brief) Cardiac: FOUND: calf easily compressible, calf soft, nontender, pedal pulses intact Capillary Refill: <2 sec Abdomen (Brief) Abdominal Brief: FOUND: non-tender Musculoskeletal (Brief) Knee: FOUND painful ROM Hip: FOUND decreased ROM (rotation), FOUND decreased ROM(flexion) Surgical Site Incision: FOUND: Mepilex dressing intact, no drainage Integumentary (Brief) Integumentary Brief: FOUND dry, FOUND pink, FOUND warm Neurologic (Brief) Neurological Brief: FOUND: extremities w/o deficits, neuro intact Psychiatric (Brief) Psychiatric Brief: FOUND: alert Assessment & Plan Problems: (1) Painful total knee replacement Status: Acute Assessment & Plan: s/p lateral release Dr. Cardoza on 01/06/17 ASA 325 BID and Lovenox / SCDs added for DVT coverage. mobilize. Pt not stable from a mobility status to return home today. Will have PT / OT work with her. CM to help with discharge needs. (2) Anxiety Status: Chronic (3) Asthma Status: Chronic (4) Depression Status: Chronic (5) Diabetes Status: Chronic Assessment & Plan: get BMP, assess and see if can restart Metformin. (6) Fibromyalgia Status: Chronic (7) GERD (gastroesophageal reflux disease) Status: Chronic (8) Hypertension Status: Chronic (9) Obesity (BMI 30-39.9) Status: Chronic (10) GISSELLE (obstructive sleep apnea) Status: Chronic (11) Epilepsy (12) Gastroparesis (13) PTSD (post-traumatic stress disorder) (14) COPD (chronic obstructive pulmonary disease) Hospital Course Summary Disclaimer The visit summary below is not to be considered part of the above Progress Note. NATALIO BELLO Jan 09, 2017 08:01
--- NOTE | 2017-01-09 08:08 | PDOCECFAO ---
Admission Orders Admission Orders Allergies: Coded Allergies: Metronidazole HCl (Verified Allergy, Unknown, VOMITTING, 01/06/17) metoclopramide (Verified Allergy, Unknown, 01/06/17) PER H&P DATED 01/03/15 metronidazole (Verified Allergy, Unknown, VOMITTING, 01/06/17) procaine (Verified Allergy, Unknown, 01/06/17) INJECTIONS IN SPINE, AT DENTIST OFFICE CAUSED FLUSHED CHEEKS AND RED FACE PER H&P DATED 01/03/15 lidocaine (Verified Adverse Reaction, Unknown, REDNESS CHEEKS AND PUFFY, ) Uncoded Allergies: "JETT" DRUGS (Allergy, Unknown, PUFFY REDNESS ON CHEEKS, 05/08/16) MOLD (Allergy, Unknown, THROAT SWELLS, 05/08/16) Admitting Diagnosis Open Lateral Release Of Lt Knee Admitting Physician Joss Cardoza MD Code Status Full Code Anticipated LOS: 30 days or less Rehab Potential: Good Rehab Prognosis: Good Diet: No Concentrated Sweets Wound/Incision Care: Keep the Mepilex dressing in place and do not remove. Call Dr Cardoza if you have wound healing concerns. Keep the dressing dry. May use Facility Protocol /SO: Yes May Have Flu Vaccine: Yes Evaluations/Treat: PT, OT Shelter Certification I certify that SNF services are required to be given on an Inpatient basis because of the patients need for alf care on a continuing basis for the condition(s) for which he/she received inpatient hospital services prior to his/her transfer to the SNF. SNF inpatient care is necessary for the following reasons Postop Assessment Care Cardiac or Respiratory Arrest In Event of Arrest: Start CPR,call 911,to ER Resident is Aware of Diagnosis: Yes Follow Up Appointment: Jan 14, 2017 Additional Orders: Call Dr Cardoza's office at [phone] if you need to adjust the follow up appt. She is scheduled to see Dr Cardoza on 01/14/17 @ 9:30am. PT / OT to work with ambulation, exercises, strengthening, ADL's, Txfrs, etc... WBAT. May work on ROM of the knee. Encourage cough and deep breating or / and use the incentive spirometer pt had at [facility]. Check BGM's BID and prn. Her blood sugars ranged from 90-130 throughout her stay at [facility]. KAITLIN CHOWDHURY Jan 09, 2017 08:08
[2017-01-09] MEDS ORDERED: ASPI81TA2 PO (08:12)
[2017-01-09] MEDS ORDERED: ENOX40DI SQ (08:12)
--- NOTE | 2017-01-09 08:26 | DSPDOC ---
General Date Date DATE: 01/09/17 TIME: 08:15 Attending Physician Joss Cardoza MD Admitting Physician Joss Cardoza MD Admitting Diagnosis S/P TKA WITH PAINFUL PATELLA Discharge Diagnosis Painful left total knee revision due to patellar tendon impingement. Procedures Open lateral release with debridement of scar under the patellar tendon by Dr Cardoza. History of Present Illness LIZ Rolle had a total knee revision in the past for chronic knee pain. She developed a painful and visible popping along the anterior-lateral aspect of the knee. It was bothersome with walking, stair and most all activities. She tried PT / exercises and other conservative methods without relief of her symptoms. Xrays showed no apparent failure of her implant and her problem was thought to be soft tissue in nature. Pt admitted for open surgical release of the IT band in the left knee with exploration and treatment as needed. Hospital Course After appropriate preoperative clearance and signing of operative consent, the patient was given IV antibiotics, according to orthopedic protocol. The patient was taken to the operating room and underwent elective open lateral release of the left total knee with IT band release and debridement of scar under the patellar tendon that was impinging on the poly spacer. Following surgery, antibiotics were discontinued less than 24 hours according to joint protocol. Aspirin and Lovenox were initiated and SCDs added for DVT prevention. The dressing remained clean, dry, and intact. Pain control was obtained via multimodal approach. Bowel motivation addressed with scheduled and PRN medications. Early mobilization was initiated through PT services. Discharge arrangements made by a collaborative effort between the patient and Case Management. Pt did not feel safe going back to her home environment and and extended amount of time was spent attempting to find appropriate discharge placement. She was accepted to [facility] for a planned brief stay before returning home. Follow-up is scheduled on 01/14/[address] Cardoza. Discharge instructions given by orthopedic providers and nursing staff at discharge. Discharge condition was good. Problems: (1) Painful total knee replacement Status: Acute Assessment & Plan: s/p lateral release Dr. Cardoza on 01/06/17 ASA 325 BID and Lovenox / SCDs added for DVT coverage. mobilize. Pt not stable from a mobility status to return home today. Will have PT / OT work with her. CM to help with discharge needs. (2) Anxiety Status: Chronic (3) Asthma Status: Chronic (4) Depression Status: Chronic (5) Diabetes Status: Chronic Assessment & Plan: get BMP, assess and see if can restart Metformin. (6) Fibromyalgia Status: Chronic (7) GERD (gastroesophageal reflux disease) Status: Chronic (8) Hypertension Status: Chronic (9) Obesity (BMI 30-39.9) Status: Chronic (10) GISSELLE (obstructive sleep apnea) Status: Chronic (11) Epilepsy Status: Chronic (12) Gastroparesis Status: Chronic (13) PTSD (post-traumatic stress disorder) Status: Chronic (14) COPD (chronic obstructive pulmonary disease) Status: Chronic Laboratory Laboratory Tests Test 01/08/17 10:21 01/08/17 14:25 Glucometer 103mg/dL 100mg/dL Home Meds Active Scripts Aspirin (Aspirin) 81 Mg Tab.chew, 1 TAB PO DAILY, #30 TAB 3 Refills Prov:KAITLIN CHOWDHURY 01/09/17 Enoxaparin Sodium (Lovenox) 40 Mg/0.4 Ml Inj, 40 MG SQ DAILY, #21 Prov:KAITLIN CHOWDHURY 01/09/17 Oxycodone HCl (Oxycodone HCl) 5 Mg Tablet, 5-15 MG PO Q3H Y for PAIN, #60 TAB Prov:NATALIO BELLO 01/07/17 Polyethylene Glycol 3350 (Healthylax) 17 Gm Powd.pack, 17 GM PO DAILY, #30 PACKET Prov:NATALIO BELLO 06/04/16 Reported Medications Sucralfate (Sucralfate) 1 Gm Tablet, 1 TAB PO ACHS 12/31/16 Sertraline (Sertraline) 100 Mg Tablet, 1 TAB PO DAILY 12/31/16 Hypromellose (Systane Gel) 10 Gm Gel..gram., 1 DOSE HS 06/03/16 Esomeprazole Magnesium (Nexium) 40 Mg Capsule.dr, 1 CAP PO BID, CAP 05/23/16 L.acidoph & Paracasei,B.lactis (Probiotic) 1 Each Capsule, 1 CAP PO WS 05/23/16 Propylene Glycol/Peg 400 (Systane 0.3-0.4% Eye Drops) 15 Ml Drops, 1 DROP BOTH EYES BID 05/23/16 Cetirizine HCl (Cetirizine HCl) 10 Mg Tablet, 1 TAB PO DAILY, TAB 05/16/16 Fluticasone/Salmeterol (Advair 250-50 Diskus) 1 Disk W/Dev Inhaler, 1 PUFF ORAL INH RTBID for SHORTNESS OF AIR/WHEEZING, INHALER 05/16/16 Diphenhydramine HCl (Diphenhydramine HCl) 25 Mg Tablet, 1 TAB PO Q6H Y for HEADACHE takes with tizanidine for migraines 05/16/16 Tizanidine HCl (Tizanidine HCl) 2 Mg Tablet, 1 TAB PO Q8HPRN takes with benadryl for migraines 05/16/16 Metformin HCl (Metformin HCl) 1,000 Mg Tablet, 1 TAB PO BIDWM, TAB Take one tablet, by mouth, twice daily with meals 05/16/16 Naproxen Sodium (Aleve) 220 Mg Capsule, 220 MG PO BIDWM Y for PAIN, CAP 05/16/16 Buspirone HCl (Buspirone HCl) 15 Mg Tablet, 1 TAB PO BID 05/16/16 Linaclotide (Linzess) 290 Mcg Capsule, 1 CAP PO DAILY 05/16/16 Potassium Chloride (Potassium Chloride) 20 Meq Tab.er.prt, 20 MEQ PO DAILY, TAB 05/16/16 Lamotrigine (Lamictal Xr) 300 Mg Tab.er.24, 300 MG PO BID 11/22/13 Magnesium Oxide (Magnesium) 400 Mg Capsule, 400 MG PO DAILY 06/07/13 Furosemide (Furosemide) 20 Mg Tablet, 20 MG PO BID 01/12/13 Albuterol Sulfate (Albuterol Sulfate Hfa) 8.5 Gm Hfa.aer.ad, 2 PUFF INH Q4HPRN 01/12/13 Discontinued Reported Medications Tramadol Hcl (Tramadol Hcl) 50 Mg Tablet, 50 MG PO QID Y for PAIN 01/12/13 Discharge Disposition Please refer to Case Management Notes for patient's disposition. Estimated Blood Loss 20.0 KAITLIN CHOWDHURY Jan 09, 2017 08:19
[2017-01-09 08:43] VITALS: PULSE 86; RESP 18
[2017-01-09] MEDS: ENOXAPARIN 40 MG/0.4 ML INJECTION SQ SCH (08:52)
[2017-01-09] MEDS: POLYETHYL.GLYCOL 3350 PACKET 17gm PO SCH (08:53)
[2017-01-09] MEDS: SERTRALINE 100 MG TABLET PO SCH (08:53)
[2017-01-09] MEDS: MAGNESIUM OXIDE 400 MG TABLET PO SCH (08:53)
[2017-01-09] MEDS: LINACLOTIDE 145 MCG CAPSULE PO SCH (08:53)
[2017-01-09] MEDS: LAMOTRIGINE 100 MG TABLET PO SCH (08:54)
[2017-01-09] MEDS: POTASSIUM CHLORIDE 20 MEQ TABLET PO SCH (08:54)
[2017-01-09] MEDS: CETIRIZINE 10 MG TABLET PO SCH (08:54)
[2017-01-09] MEDS: METFORMIN 1,000 MG TABLET PO SCH (08:54)
[2017-01-09] MEDS: FUROSEMIDE 20 MG TABLET PO SCH (08:54)
[2017-01-09 09:30] VITALS: BP 129/69; PULSE 63; RESP 16; TEMP 97.4; O2SAT 96
--- NOTE | 2017-01-09 09:40 | NUR ---
CM CALL FROM KERRIE WITH [facility]; SHE SAID PT IS ACCEPTED TO [facility] FOR SKILLED STAY UNDER MEDICAID. SHE SAID PT WAS APPROVED FOR A BRIEF, LESS THAN 30 DAY STAY. TRANSPORTATION SET FOR 4 PM. THIS WORKER WILL FOLLOW UP WITH COORDINATION OF THIS.
[2017-01-09] MEDS: FLUTICASONE/SALMETEROL 250/50 DISK INHALER ORAL INH SCH (09:42)
--- NOTE | 2017-01-09 10:01 | PDOCECFAO ---
Admission Orders Admission Orders Admit to: [facility] Allergies: Coded Allergies: Metronidazole HCl (Verified Allergy, Unknown, VOMITTING, 01/06/17) metoclopramide (Verified Allergy, Unknown, 01/06/17) PER H&P DATED 01/03/15 metronidazole (Verified Allergy, Unknown, VOMITTING, 01/06/17) procaine (Verified Allergy, Unknown, 01/06/17) INJECTIONS IN SPINE, AT DENTIST OFFICE CAUSED FLUSHED CHEEKS AND RED FACE PER H&P DATED 01/03/15 lidocaine (Verified Adverse Reaction, Unknown, REDNESS CHEEKS AND PUFFY, ) Uncoded Allergies: "JETT" DRUGS (Allergy, Unknown, PUFFY REDNESS ON CHEEKS, 05/08/16) MOLD (Allergy, Unknown, THROAT SWELLS, 05/08/16) Admitting Diagnosis Open Lateral Release Of Lt Knee Admitting Physician Joss Cardoza MD Code Status Full Code Anticipated LOS: 30 days or less Rehab Potential: Good Rehab Prognosis: Good Diet: No Concentrated Sweets Wound/Incision Care: Keep the Mepilex dressing in place and do not remove. Call Dr Cardoza if you have wound healing concerns. Keep the dressing dry. May use Facility Protocol /SO: Yes May Have Flu Vaccine: Yes Evaluations/Treat: PT, OT Fdc Certification I certify that SNF services are required to be given on an Inpatient basis because of the patients need for nursing home care on a continuing basis for the condition(s) for which he/she received inpatient hospital services prior to his/her transfer to the SNF. SNF inpatient care is necessary for the following reasons Postop Assessment Care Cardiac or Respiratory Arrest In Event of Arrest: Start CPR,call 911,to ER Resident is Aware of Diagnosis: Yes Follow Up Appointment: Jan 14, 2017 Additional Orders: This is a planned brief stay at [facility] following knee surgery. Call Dr Cardoza's office at [phone] if you need to adjust the follow up appt. She is scheduled to see Dr Cardoza on 01/14/17 @ 9:30am. PT / OT to work with ambulation, exercises, strengthening, ADL's, Txfrs, etc... WBAT. May work on ROM of the knee. Encourage cough and deep breating or / and use the incentive spirometer pt had at [facility]. Check BGM's BID and prn. Her blood sugars ranged from 90-130 throughout her stay at [facility]. KAITLIN CHOWDHURY Jan 09, 2017 10:01
[2017-01-09 12:58] VITALS: BP 134/90; PULSE 83; RESP 16; TEMP 98.3; O2SAT 93
--- NOTE | 2017-01-09 13:35 | NUR ---
MIKE PT HAD QUESTIONS ABOUT DME; THIS WORKER EXPLAINED [facility] WILL PROVIDE WHAT SHE NEEDS. SHE HAD NO FURTHER QUESTIONS/NEEDS. TIME OUT COMPLETED WITH RN. ORDERS FAXED TO [facility]. CALLED KERRIE AT [facility], SHE SAID SHE RECEIVED THE ORDERS AND WILL LET THIS WORKER KNOW IF SHE NEEDS ANYTHING FURTHER. Addendum: 01/09/17 at 1336 by SAEID LOGAN Amended: Links added.
--- NOTE | 2017-01-09 14:31 | NUR ---
Attempt to see pt this date without treatment. Pt in bathroom with diarrhea and reporting she needs to sit a while longer. She is discharging to [facility] for skilled this afternoon. When asked if there was anything we needed to work on before the transfer, she state she is just concerned about the swelling and heat and stating it will just take time. No treatment this date with anticipation of DC to [facility] today. Mita Baer, PT
--- NOTE | 2017-01-09 15:21 | NUR ---
DISCHARGE PATIENT WAS DISCHARGED TO [facility]. PATIENT WAS TRANSPORTED THERE FOR FURTHER CARE. PERSONAL BELONGINGS RETURNED AND ID BAND REMOVED. IV DISCONTINUED. PATIENT PACKET GIVEN TO TRANSPORTER. SCRIPT FOR OXYCODONE IN PACKET WELL. THIS NURSE WAS WAS UNABLE TO GIVE REPORT AT THIS TIME. ATTEMPTED 3X TO CALL AND GIVE REPORT BUT ONLY GOT VOICEMAIL. LEFT A MESSAGE ON VOICE MAIL FOR ACCEPTING NURSE TO CALL ME BACK.
--- NOTE | 2017-01-09 15:35 | NUR ---
REPORT GIVEN REPORT GIVEN TO Vanna BARKSDALE RN. AT [facility].
== END 2017-01-09 15:07 ==
LOC: SCU 09:10 → SRG 09:10 → SCU 01-09 15:07
PROVIDERS: ATTEND Orthopaedic Surgery
DX: M25.562 Pain in left knee (principal); Z96.653 Presence of artificial knee joint, bilateral; I10 Essential (primary) hypertension; K21.9 Gastro-esophageal reflux disease without esophagitis; E11.9 Type 2 diabetes mellitus without complications; J44.9 Chronic obstructive pulmonary disease, unspecified; E78.5 Hyperlipidemia, unspecified; M79.7 Fibromyalgia; G43.909 Migraine, unspecified, not intractable, without status migrainosus; G40.909 Epilepsy, unspecified, not intractable, without status epilepticus; F41.9 Anxiety disorder, unspecified; J45.909 Unspecified asthma, uncomplicated; G47.30 Sleep apnea, unspecified; Z79.84 Long term (current) use of oral hypoglycemic drugs; Z79.899 Other long term (current) drug therapy; Z79.51 Long term (current) use of inhaled steroids; Z99.81 Dependence on supplemental oxygen; Z88.8 Allergy status to other drugs, medicaments and biological substances; Z87.891 Personal history of nicotine dependence; Z90.710 Acquired absence of both cervix and uterus; Z90.49 Acquired absence of other specified parts of digestive tract
CPT/HCPCS: 27425; 36415; 80048; 82948; 94640; 97162; 97166; 97530; 97535; A9270; G8978; G8979; G8980; G8987; G8988; J0690; J1200; J1580; J1650; J2250; J3010; J3370; J7030; J7050; J7120; J7611